=== PATIENT | female | born 1950 | race Caucasian/White ===

== ENCOUNTER 2017-07-06 12:13 | Emergency (ER) | payer MEDICARE, OTHER ==
[2017-07-06] MEDS ORDERED: IBUPROFEN 200 MG TAB PO ONE (12:53)
--- NOTE | 2017-07-06 14:49 | RAD REPORT ---
EXAM DESCRIPTION: RAD - Foot Right 3 View - 07/06/2017 1:20 pm CLINICAL HISTORY: Right foot pain status post injury FINDINGS: No fracture or dislocation is seen
--- NOTE | 2017-07-06 14:50 | EDPHYS ---
Physician Documentation [facility] Name: Yoanna Salguero Age: 66 yrs Sex: Female : 1950 Arrival Date: 07/06/2017 Time: 12:19 Bed 17 Private MD: Dena Gonzalez ED Physician Suraj Carreno HPI: 07/06 12:57 This 66 yrs old Female presents to ER via Ambulatory with complaints of Foot kb Pain. 12:57 The patient presents with pain, that is acute, swelling, tenderness. The complaints kb affect the right foot. Context: The problem was sustained at home, the patient can partially bear weight, must have assistance. Onset: The symptoms/episode began/occurred 1 week(s) ago, and became worse 2 day(s) ago. Modifying factors: The symptoms are alleviated by nothing, the symptoms are aggravated by weight bearing, wearing shoes. Associated signs and symptoms: Pertinent positives: swelling, Pertinent negatives: calf tenderness, fever, nausea, numbness, tingling, vomiting, warmth, weakness. Severity of symptoms: At their worst the symptoms were moderate, in the emergency department the symptoms are unchanged. The patient has not experienced similar symptoms in the past. The patient has not recently seen a physician. Pt states she fell 6 weeks ago and injured her right ankle. STates it was very swollen and she figured it was just a bad sprain. States she did not have it evaluated at the time. States the swelling has been getting better, but she started having right foot pain a week ago and it has been getting worse over the last 2 days. . Historical: - Allergies: 12:28 No Known Allergies; la1 - PMHx: 12:28 None; la1 - Immunization history:: Adult Immunizations up to date. - Social history:: Smoking status: Patient/guardian denies using tobacco. ROS: 13:01 Constitutional: Negative for fever, chills, and weight loss, Cardiovascular: Negative kb for chest pain, palpitations, and edema, Respiratory: Negative for shortness of breath, cough, wheezing, and pleuritic chest pain, Abdomen/GI: Negative for abdominal pain, nausea, vomiting, diarrhea, and constipation, Skin: Negative for injury, rash, and discoloration, Neuro: Negative for headache, weakness, numbness, tingling, and seizure. 13:01 MS/extremity: Positive for pain, swelling, tenderness, of the right foot. Exam: 13:01 Constitutional: This is a well developed, well nourished patient who is awake, alert, kb and in no acute distress. Head/Face: Normocephalic, atraumatic. Chest/axilla: Normal chest wall appearance and motion. Nontender with no deformity. No lesions are appreciated. Cardiovascular: Regular rate and rhythm with a normal S1 and S2. No gallops, murmurs, or rubs. Normal PMI, no JVD. No pulse deficits. Respiratory: Lungs have equal breath sounds bilaterally, clear to auscultation and percussion. No rales, rhonchi or wheezes noted. No increased work of breathing, no retractions or nasal flaring. Abdomen/GI: Soft, non-tender, with normal bowel sounds. No distension or tympany. No guarding or rebound. No evidence of tenderness throughout. Skin: Warm, dry with normal turgor. Normal color with no rashes, no lesions, and no evidence of cellulitis. Neuro: Awake and alert, GCS 15, oriented to person, place, time, and situation. Cranial nerves II-XII grossly intact. Motor strength 5/5 in all extremities. Sensory grossly intact. Cerebellar exam normal. Normal gait. 13:01 Musculoskeletal/extremity: Extremities: grossly normal except: noted in the right foot: pain, swelling, tenderness, ROM: intact in all extremities, Circulation is intact in all extremities. Sensation intact. Weight bearing: can bear weight with assistance only. Vital Signs: 12:27 BP 140 / 78; Pulse 87; Resp 19; Temp 98.2; Pulse Ox 100% on R/A; Weight 68.04 kg; la1 Height 5 ft. 5 in. (165.10 cm); 14:38 BP 115 / 78; Pulse 62; Resp 12; Pulse Ox 100% on R/A; Pain 7/10; em1 12:27 Body Mass Index 24.96 (68.04 kg, 165.10 cm) la1 MDM: 12:34 Patient medically screened. kb 13:01 Data reviewed: vital signs, nurses notes. Data interpreted: Pulse oximetry: on room air kb is 100 %. Interpretation: normal. 14:48 Counseling: I had a detailed discussion with the patient and/or guardian regarding: the kb historical points, exam findings, and any diagnostic results supporting the discharge/admit diagnosis, radiology results, the need for outpatient follow up, a orthopedic surgeon, to return to the emergency department if symptoms worsen or persist or if there are any questions or concerns that arise at home. 07/06 12:34 Order name: Foot Right 3 View XRAY; Complete Time: 14:55 kb 07/06 14:48 Order name: Alton Wrap; Complete Time: 15:11 kb 07/06 14:48 Order name: Crutches; Complete Time: 15:11 kb Administered Medications: 12:56 Drug: Ibuprofen 600 mg Route: PO; 15:17 Follow up: Response: No adverse reaction; Marked relief of symptoms Disposition: 07/07 09:17 Co-signature as Attending Physician, Suraj Carreno MD I agree with the assessment and dinesh plan of care. Disposition: 07/06/17 14:49 Discharged to Home. Impression: Pain in right foot. - Condition is Stable. - Discharge Instructions: Foot Sprain. - Prescriptions for Diclofenac Sodium 75 mg Oral Tablet, Delayed Release (E.C.) - take 1 tablet by ORAL route 2 times per day As needed; 30 tablet. - Medication Reconciliation Form, Thank You Letter, Antibiotic Education, Prescription Opioid Use form. - Follow up: Emergency Department; When: As needed; Reason: Worsening of condition. Follow up: Private Physician; When: 2 - 3 days; Reason: Recheck today's complaints, Continuance of care, Re-evaluation by your physician. Signatures: Dispatcher [employer] EDKY Maryse Bardales, BESSY-C MANAGER AGENCY-Rhonda Rider RN Suraj Perez ch, MD MD cha Attema, Lee RN RN la1 Corrections: (The following items were deleted from the chart) 07/06 15:18 14:49 07/06/2017 14:49 Discharged to Home. Impression: Pain in right foot. Condition is ch Stable. Forms are Medication Reconciliation Form, Thank You Letter, Antibiotic Education, Prescription Opioid Use. Follow up: Emergency Department; When: As needed; Reason: Worsening of condition. Follow up: Private Physician; When: 2 - 3 days; Reason: Recheck today's complaints, Continuance of care, Re-evaluation by your physician. kb
--- NOTE | 2017-07-06 14:50 | ER ---
Nurse's Notes [facility] Name: Yoanna Sagluero Age: 66 yrs Sex: Female : 1950 Arrival Date: 07/06/2017 Time: 12:19 Bed 17 Private MD: Dena Gonzalez Diagnosis: Pain in right foot Presentation: 07/06 12:26 Presenting complaint: Patient states: I had an injury to my ankle about 6 weeks ago on la1 the right and now I am having pain in the top and bottom of my right foot. Transition of care: patient was not received from another setting of care. Onset of symptoms was July 06, 2017. Initial Sepsis Screen: Does the patient meet any 2 criteria? No. Patient's initial sepsis screen is negative. Does the patient have a suspected source of infection? No. Patient's initial sepsis screen is negative. Care prior to arrival: None. 12:26 Method Of Arrival: Ambulatory la1 12:26 Acuity: RAE 4 la1 Historical: - Allergies: 12:28 No Known Allergies; la1 - PMHx: 12:28 None; la1 - Immunization history:: Adult Immunizations up to date. - Social history:: Smoking status: Patient/guardian denies using tobacco. Vital Signs: 12:27 BP 140 / 78; Pulse 87; Resp 19; Temp 98.2; Pulse Ox 100% on R/A; Weight 68.04 kg; la1 Height 5 ft. 5 in. (165.10 cm); 14:38 BP 115 / 78; Pulse 62; Resp 12; Pulse Ox 100% on R/A; Pain 7/10; em1 12:27 Body Mass Index 24.96 (68.04 kg, 165.10 cm) la1 ED Course: 12:19 Patient arrived in ED. sb2 12:19 Dena Gonzalez MD is Private Physician. sb2 12:27 Triage completed. la1 12:27 Arm band placed on left wrist. la1 12:33 Maryse Bardales FNP-C is [facility]. kb 12:33 Suraj Carreno MD is Attending Physician. kb 12:54 Rhonda Gottlieb, CORTNEY is Primary Nurse. ch 13:20 Foot Right 3 View XRAY In Process Unspecified. EDMS 15:11 Crutch training done. Alton wrap to right ankle. em1 Administered Medications: 12:56 Drug: Ibuprofen 600 mg Route: PO; 15:17 Follow up: Response: No adverse reaction; Marked relief of symptoms Outcome: 14:49 Discharge ordered by . 15:18 Patient left the ED. Signatures: Dispatcher [employer] EDMaryse Lane, Rhonda Mark RN RN ch Martinez, Eric em1 Nahum Hoff RN RN paRose Moser 2
== END 2017-07-06 15:18 | disposition home or self-care (01) ==
LOC: ER 12:13
DX: M79.671 Pain in right foot (principal)
CPT/HCPCS: 99283

== ENCOUNTER 2018-07-28 17:21 | Emergency (ER) | payer MEDICARE ==
[2018-07-28 17:59] LABS: Urine Blood NEGATIVE (NEG); Urine Glucose NEGATIVE (NEG); Urine Protein NEGATIVE (NEG); Urine Specific Gravity 1.025 (1.005-1.030)
[2018-07-28] MEDS ORDERED: IBUPROFEN 400 MG TAB ONE (18:09)
[2018-07-28] MEDS ORDERED: DEXAMETHASONE 4 MG TAB ONE (18:09)
[2018-07-28] MEDS ORDERED: IBUPROFEN 200 MG TAB PO ONE (18:10)
--- NOTE | 2018-07-28 18:11 | ER ---
Nurse's Notes [facility] Name: Yoanna Salguero Age: 67 yrs Sex: Female : 1950 Arrival Date: 07/28/2018 Time: 17:24 Bed 15 Private MD: Diagnosis: Low back pain Presentation: 07/28 17:24 Presenting complaint: Patient states: i started having this back pain Friday morning, hj it looks like arthritic pain, the pain moves to the groin area; denies N/V; denies fever and chills; denies trauma to the area;. Transition of care: patient was not received from another setting of care. Onset of symptoms was July 28, 2018. Risk Assessment: Do you want to hurt yourself or someone else? Patient reports no desire to harm self or others. Initial Sepsis Screen: Does the patient meet any 2 criteria? No. Patient's initial sepsis screen is negative. Does the patient have a suspected source of infection? No. Patient's initial sepsis screen is negative. Care prior to arrival: None. 17:24 Method Of Arrival: Ambulatory 17:24 Acuity: RAE 3 hj Historical: - Allergies: 17:26 Sulfa (Sulfonamide Antibiotics); hj 17:26 Codeine; hj - PMHx: 17:26 None; hj - PSHx: 17:26 None; hj - Immunization history:: Adult Immunizations up to date. - Family history:: not pertinent. - Ebola Screening: : Patient negative for fever greater than or equal to 101.5 degrees Fahrenheit, and additional compatible Ebola Virus Disease symptoms. - Social history:: Smoking status: Patient/guardian denies using tobacco. Screenin:30 Abuse screen: Denies threats or abuse. Nutritional screening: No deficits noted. rb1 Tuberculosis screening: No symptoms or risk factors identified. Fall Risk None identified. Assessment: 17:30 General: Appears uncomfortable, Behavior is calm, cooperative. Pain: Complains of pain rb1 in low back Pain currently is 10 out of 10 on a pain scale. Pain began 2-3 days ago. Pain: Aggravated by increased activity, repositioning. Neuro: Level of Consciousness is awake, alert, obeys commands, Oriented to person, place, time, situation. Cardiovascular: Capillary refill < 3 seconds is brisk in bilateral fingers. Respiratory: Airway is patent Respiratory effort is even, unlabored, Respiratory pattern is regular, symmetrical. GI: No signs and/or symptoms were reported involving the gastrointestinal system. : No signs and/or symptoms were reported regarding the genitourinary system. Derm: Skin is pink, warm \T\ dry. Musculoskeletal: Range of motion: intact in all extremities. 17:57 Reassessment: pt. went to X-ray. rb1 18:18 Reassessment: discharge pending due to waiting for X-ray results. rb1 18:23 Reassessment: Patient appears in no apparent distress at this time. No changes from rb1 previously documented assessment. Vital Signs: 17:26 BP 155 / 98; Pulse 73; Resp 18; Temp 98.0(O); Pulse Ox 97% on R/A; Weight 72.57 kg; hj Height 5 ft. 4 in. (162.56 cm); Pain 10/10; 17:57 rb1 18:23 BP 124 / 93; Pulse 73; Resp 16; Temp 98.5(O); Pulse Ox 99% on R/A; Pain 10/10; rb1 17:26 Body Mass Index 27.46 (72.57 kg, 162.56 cm) hj 17:57 pt. went to X-ray rb1 ED Course: 17:24 Patient arrived in ED. hj 17:26 Triage completed. hj 17:28 Arm band placed on right wrist. hj 17:30 Suraj Carreno MD is Attending Physician. [facility] 17:30 Patient has correct armband on for positive identification. Bed in low position. Call rb1 light in reach. Side rails up X 1. Pulse ox on. NIBP on. 17:51 Macy Lieca, RN is Primary Nurse. rb1 18:07 Lumbar Spine (3 Views) XRAY In Process Unspecified. EDMS 18:30 No provider procedures requiring assistance completed. Patient did not have IV access rb1 during this emergency room visit. Administered Medications: 17:57 Drug: Motrin 600 mg Route: PO; rb1 18:23 Follow up: Response: No adverse reaction rb1 17:57 Drug: Decadron 4 mg Route: PO; rb1 18:23 Follow up: Response: No adverse reaction rb1 18:14 Drug: Cipro 500 mg Route: PO; rb1 18:30 Follow up: Response: No adverse reaction rb1 Outcome: 18:10 Discharge ordered by . dinesh 18:30 Patient left the ED. rb1 18:30 Discharged to home via wheelchair, with significant other. rb1 18:30 Condition: stable 18:30 Discharge instructions given to patient, Instructed on discharge instructions, follow up and referral plans. medication usage, Demonstrated understanding of instructions, follow-up care, medications, Prescriptions given X 4. Signatures: Dispatcher [employer] EDMS Suraj Carreno MD MD cha Joaquin, Henry, RN RN Macy Townsend RN RN rb1 Corrections: (The following items were deleted from the chart) 17:30 17:26 Pulse 73bpm; Resp 18bpm; Pulse Ox 97% RA; Temp 98.0F Oral; 72.57 kg; Height 5 ft. hj 4 in.; BMI: 27.4; Pain 10/10; hj 17:31 17:26 Pulse 73bpm; Resp 18bpm; Pulse Ox 97% RA; Temp 98.0F Oral; 72.57 kg; Height 5 ft. hj 4 in.; BMI: 27.4; Pain 10/10; hj 18:47 18:44 Patient left the ED. rb1 rb1
--- NOTE | 2018-07-28 18:11 | EDPHYS ---
Physician Documentation [facility] Name: Yoanna Salguero Age: 67 yrs Sex: Female : 1950 Arrival Date: 07/28/2018 Time: 17:24 Bed 15 Private MD: ED Physician Suraj Carreno HPI: 07/28 17:49 This 67 yrs old Female presents to ER via Ambulatory with complaints of Back dinesh Pain. 17:49 The patient presents with pain that is acute. The symptoms are located in the low back. dinesh Onset: The symptoms/episode began/occurred 2 day(s) ago. The pain does not radiate. Associated signs and symptoms: The patient has no apparent associated signs or symptoms. Modifying factors: The patient symptoms are alleviated by remaining still, the patient symptoms are aggravated by any movement. Severity of symptoms: At their worst the symptoms were mild. The patient has not experienced similar symptoms in the past. Historical: - Allergies: 17:26 Sulfa (Sulfonamide Antibiotics); hj 17:26 Codeine; hj - PMHx: 17:26 None; hj - PSHx: 17:26 None; hj - Immunization history:: Adult Immunizations up to date. - Family history:: not pertinent. - Ebola Screening: : Patient negative for fever greater than or equal to 101.5 degrees Fahrenheit, and additional compatible Ebola Virus Disease symptoms. - Social history:: Smoking status: Patient/guardian denies using tobacco. ROS: 17:49 Constitutional: Negative for fever, chills, and weight loss, Eyes: Negative for injury, dinesh pain, redness, and discharge, ENT: Negative for injury, pain, and discharge, Neck: Negative for injury, pain, and swelling, Cardiovascular: Negative for chest pain, palpitations, and edema, Respiratory: Negative for shortness of breath, cough, wheezing, and pleuritic chest pain, Abdomen/GI: Negative for abdominal pain, nausea, vomiting, diarrhea, and constipation, : Negative for injury, bleeding, discharge, and swelling, MS/Extremity: Negative for injury and deformity, Skin: Negative for injury, rash, and discoloration, Neuro: Negative for headache, weakness, numbness, tingling, and seizure, Psych: Negative for depression, anxiety, suicide ideation, homicidal ideation, and hallucinations, Allergy/Immunology: Negative for hives, rash, and allergies, Endocrine: Negative for neck swelling, polydipsia, polyuria, polyphagia, and marked weight changes, Hematologic/Lymphatic: Negative for swollen nodes, abnormal bleeding, and unusual bruising. 17:49 Back: Positive for pain with movement. Exam: 17:49 Constitutional: This is a well developed, well nourished patient who is awake, alert, dinesh and in no acute distress. Head/Face: Normocephalic, atraumatic. Eyes: Pupils equal round and reactive to light, extra-ocular motions intact. Lids and lashes normal. Conjunctiva and sclera are non-icteric and not injected. Cornea within normal limits. Periorbital areas with no swelling, redness, or edema. ENT: Nares patent. No nasal discharge, no septal abnormalities noted. Tympanic membranes are normal and external auditory canals are clear. Oropharynx with no redness, swelling, or masses, exudates, or evidence of obstruction, uvula midline. Mucous membranes moist. Neck: Trachea midline, no thyromegaly or masses palpated, and no cervical lymphadenopathy. Supple, full range of motion without nuchal rigidity, or vertebral point tenderness. No Meningismus. Chest/axilla: Normal chest wall appearance and motion. Nontender with no deformity. No lesions are appreciated. Cardiovascular: Regular rate and rhythm with a normal S1 and S2. No gallops, murmurs, or rubs. Normal PMI, no JVD. No pulse deficits. Respiratory: Lungs have equal breath sounds bilaterally, clear to auscultation and percussion. No rales, rhonchi or wheezes noted. No increased work of breathing, no retractions or nasal flaring. Abdomen/GI: Soft, non-tender, with normal bowel sounds. No distension or tympany. No guarding or rebound. No evidence of tenderness throughout. Female : Normal external genitalia. Skin: Warm, dry with normal turgor. Normal color with no rashes, no lesions, and no evidence of cellulitis. 17:49 Back: pain, that is mild, ROM is painful, normal spinal alignment noted, CVA tenderness, is absent. Vital Signs: 17:26 BP 155 / 98; Pulse 73; Resp 18; Temp 98.0(O); Pulse Ox 97% on R/A; Weight 72.57 kg; hj Height 5 ft. 4 in. (162.56 cm); Pain 10/10; 17:57 rb1 18:23 BP 124 / 93; Pulse 73; Resp 16; Temp 98.5(O); Pulse Ox 99% on R/A; Pain 10/10; rb1 17:26 Body Mass Index 27.46 (72.57 kg, 162.56 cm) hj 17:57 pt. went to X-ray [facility] MDM: 17:30 Patient medically screened. [facility] 17:52 Data reviewed: vital signs, nurses notes, radiologic studies. [facility] 07/28 17:49 Order name: Urine Culture [facility] 07/28 17:53 Order name: Urine Dipstick--Ancillary (enter results); Complete Time: 18:04 07/28 17:49 Order name: Lumbar Spine (3 Views) XRAY; Complete Time: 18:32 [facility] 07/28 17:49 Order name: Urine Dipstick-Ancillary (obtain specimen); Complete Time: 17:53 [facility] Administered Medications: 17:57 Drug: Motrin 600 mg Route: PO; rb1 18:23 Follow up: Response: No adverse reaction rb1 17:57 Drug: Decadron 4 mg Route: PO; rb1 18:23 Follow up: Response: No adverse reaction rb1 18:14 Drug: Cipro 500 mg Route: PO; rb1 18:30 Follow up: Response: No adverse reaction rb1 Disposition: 07/28/18 18:10 Discharged to Home. Impression: Low back pain. - Condition is Stable. - Discharge Instructions: Back Pain, Adult, Chronic Back Pain, Musculoskeletal Pain, Back Injury Prevention, [id number], Back Pain, Adult, [id number]. - Prescriptions for Cipro 250 mg Oral Tablet - take 1 tablet by ORAL route every 12 hours; 14 tablet. Tramadol 50 mg Oral Tablet - take 1 tablet by ORAL route every 8 hours as needed; 20 tablet. Medrol (James) 4 mg Oral Tablets, Dose Pack - take 1 tablet by ORAL route as directed - follow package instructions; 1 packet. Motrin IB 200 mg Oral Tablet - take 2 tablet by ORAL route every 6 hours As needed as needed with food; 30 tablet. - Medication Reconciliation Form, Thank You Letter, Antibiotic Education, Prescription Opioid Use form. - Follow up: Private Physician; When: 2 - 3 days; Reason: Recheck today's complaints, Continuance of care, Re-evaluation by your physician. - Problem is new. - Symptoms have improved. Signatures: Dispatcher [employer] EDSuraj Burk MD MD cha Joaquin, Henry RN RN Macy Townsend, RN RN rb1 Corrections: (The following items were deleted from the chart) 18:44 18:10 07/28/2018 18:10 Discharged to Home. Impression: Low back pain. Condition is rb1 Stable. Discharge Instructions: Back Pain, Adult, Chronic Back Pain, Musculoskeletal Pain, Back Injury Prevention, [id number], Back Pain, Adult, [id number]. Prescriptions for Cipro 250 mg Oral Tablet - take 1 tablet by ORAL route every 12 hours; 14 tablet, Tramadol 50 mg Oral Tablet - take 1 tablet by ORAL route every 8 hours as needed; 20 tablet, Medrol (James) 4 mg Oral Tablets, Dose Pack - take 1 tablet by ORAL route as directed - follow package instructions; 1 packet, Motrin IB 200 mg Oral Tablet - take 2 tablet by ORAL route every 6 hours As needed as needed with food; 30 tablet. and Forms are Medication Reconciliation Form, Thank You Letter, Antibiotic Education, Prescription Opioid Use. Follow up: Private Physician; When: 2 - 3 days; Reason: Recheck today's complaints, Continuance of care, Re-evaluation by your physician. Problem is new. Symptoms have improved. dinesh
[2018-07-28] MEDS ORDERED: CIPROFLOXACIN HCL 500 MG TAB ONE (18:28)
--- NOTE | 2018-07-28 18:28 | RAD REPORT ---
EXAM DESCRIPTION: RAD - Lumbar Spine 3 Views - 07/28/2018 6:08 pm CLINICAL HISTORY: Back pain, radiculopathy COMPARISON: None. FINDINGS: A three-view lumbar spine examination was performed. Lumbar bodies are normal in height an d normal in AP alignment. There is a mild right convex curvature of the upper lumbar spine and minima l right lateral subluxation of L3 and L4. No fracture or acute bony process seen. Disc space narrowin g is present L3-4, L4-5 and L5-S1. Endplate spurring changes are present in the mid and lower lumbar spine along with moderate facet degenerative change. No pars defects identified. IMPRESSION: Moderate severity mid and lower lumbar degenerative change as detailed. No fracture or acute finding. Concerns for disc herniation, central canal abnormality or occult bone process can be addressed with MR imaging.
== END 2018-07-28 18:44 | disposition home or self-care (01) ==
LOC: ER 17:21
DX: M54.5 Low back pain (principal); Z88.2 Allergy status to sulfonamides; Z88.5 Allergy status to narcotic agent
CPT/HCPCS: 72100; 81003; 87086; 87088; 99284

== ENCOUNTER 2020-10-25 21:07 | Emergency (ER) | payer MEDICARE ==
--- OUTSIDE RECORDS SUMMARY | 2020-10-25 21:10 | XMS REPORT | Continuity of Care Document ---
:1950 Author Organization [facility] t Address [address] [place] [address] Dr. Montero. 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 00:00: [place] vaginitis vaginitis 00 [facility] 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 and 122 it y of urge urge 00:00: [place] urinary urinary 00 Medical incontinen incontinen Br anch ce ce Allergies, Adverse Reactions, Alerts Allergy Allergy Status Severity Reaction(s) Onset Inactive Treating Comm ents Source Name Type Date Date Clinician Codeine Propensi Active Nausea 2019-02 Univers ty to and/or 2-09 ity of adverse Vomiting 00:00: [place] reaction 00 Medical s to Branch drug Sulfa Adverse Active nausea/vomit [facility] codeine Adverse Active Nausea [facility] Social History Social Habit Start Date Stop Date Quantity Comments Source Exposure to Not sure [facility] SARS-CoV-2 [facility] (event) [place] Tobacco use and 2020-09-28 2020-09-28 Never used Universit y of exposure 00:00:00 00:00:00 [facility] [place] Alcohol intake 2020-09-28 2020-09-28 Current drinker Unive rsity of 00:00:00 00:00:00 of alcohol [facility] (finding) [place] Alcohol Comment 2020-01-26 2020-01-26 Socially Universit y of 00:00:00 00:00:00 [facility] [place] Sex Assigned At [birth year] Universit y of 00:00:00 00:00:00 [facility] [place] Smoking Status Start Date Stop Date Source Never smoker [facility] Medications Ordered Filled Start Stop Current Ordering Indication Dosage Frequency Signature Comments Components Source Medication Medication Date Date Medication? Clinician (SIG) Name Name mirabegron Yes [id number] 25mg Take 1 Univers (MYRBETRIQ) 9-01 tablet by ity of 25 mg 00:00: mouth [place] tablet 00 daily. Medical Branch mirabegron Yes [id number] 25mg Take 1 Univers (MYRBETRIQ) 6-07 tablet by ity of 25 mg 00:00: mouth [place] tablet 00 daily. [facility] mirabegron 2020- No [id number] 25mg Take 1 Univers (MYRBETRIQ) 6-07 09-01 tablet by it y of 25 mg 00:00: 00:00 mouth [place] tablet 00 :00 daily. Medical Branch estradioL 2019-02 Yes [id number] .5g Insert 0.5 Univers (ESTRACE) 2-09 g into ity of 0.01 % (0.1 00:00: [place] mg/gram[place] 00 daily. Medical vaginal Insert Branch cream 0.5mg daily at night for 2 weeks and then twice a week estradioL 2019-02 Yes [id number] .5g Insert 0.5 Univers (ESTRACE) 2-09 g into ity of 0.01 % (0.1 00:00: [place] mg/gram) 00 daily. Medical vaginal Insert Branch cream 0.5mg daily at night for 2 weeks and then twice a week rosuvastati 2019-02- No TAKE 1 Uni vers n 20 mg 03-04 TABLET BY ity of tablet 00:00: 00:00 MOUTH [place]CE [place] 00 :00 DAILY IN Medical THE Branch EVENING FOR HIGH CHOLESTERO L FOR 30 DAYS valACYclovi 2019-02 Yes TAKE 1 Univ ers r 500 mg 0-22 TABLET BY ity of tablet 00:00: MOUTH [place] 00 TWICE Medical DAILY FOR Branch 5 DAYS valACYclovi 2019-02 Yes TAKE 1 Univ ers r 500 mg 0-22 TABLET BY ity of tablet 00:00: MOUTH [place] 00 TWICE Medical DAILY FOR Branch 5 DAYS fluocinonid 2019-02 Yes APPLY TO Un peter e 0.05 % 0-10 AFFECTED ity of solution 00:00: AREA ON 00 SCALP ONE Medical TO TWO Branch TIMES DAILY EVERY OTHER WEEK NEEDED fluocinonid 2019-02 Yes APPLY TO Un peter e 0.05 % 0-10 AFFECTED ity of solution 00:00: AREA ON 00 SCALP ONE Medical TO TWO Branch TIMES DAILY EVERY OTHER WEEK NEEDED Ciprofloxac Ciprofloxac 2019- No Dena [address] [facility] in HCl in HCl 09-25 [facility] Vital Signs Vital Name Observation Time Observation Value Comments Source Systolic blood 2020-09-28 20:36:00 136 mm[Hg] Univer sity of pressure [facility] [place] Diastolic blood 2020-09-28 20:36:00 86 mm[facility]Hg[facility] 2020-09-28 20:36:00 83 /min [facility] Body temperature 2020-09-28 20:36:00 36.72 Florina [facility] Respiratory rate 2020-09-28 20:36:00 18 /min [facility] Body height 2020-09-28 20:36:00 162.6 cm [facility] Body weight 2020-09-28 20:36:00 71.396 kg [facility] BMI 2020-09-28 20:36:00 27.02 kg/m2 [facility] Procedures Procedure Date / Time Performed Performing Clinician Sour e LAB ONLY PAP 2020-09-28 21:16:00 Adum, Vikki Ga [facility] SMEAR-LIQUID [facility] h HIGH RISK HPV-THIN 2020-09-28 21:16:00 AdumVikki [facility] PAP SMEAR-LIQUID 2020-09-28 21:16:00 Adum, Vikki Ga [facility] Medical Branch POCT URINALYSIS W/O 2020-09-28 00:00:00 Adum, Vikki Ga [facility] SPECIFIC GRAVITY [facility] Encounters Start End Encounter Admission Attending Care Care Encounter Source Date/Time Date/Time Type Type Clinicians Facility Department ID 2020-10-18 2020-10-18 Telephone Ad, [facility] [id number] Univers 00:00:00 00:00:00 Vikki Ga An [id number] [place] [id number] [place] [id number] [address] 2020-09-28 2020-09-28 Office Ad, [facility] [id number] Univers 15:10:07 16:20:54 Visit Vikki Ga An [id number] [facility] [id number] [id number] [address] 2020-08-15 2020-08-15 [facility] [id number] 2020-05-17 2020-05-17 [facility] [id number] 2020-05-10 2020-05-10 [facility] [id number] 2020-03-13 2020-03-13 [facility] [id number] [facility] 2019-12-20 2019-12-20 [facility] [id number] [facility] 2019-12-09 2019-12-09 [facility] [id number] [facility] 2019-12-09 2019-12-09 [facility] [id number] [facility] 2019-12-01 2019-12-01 [facility] [id number] [facility] 2019-09-26 2019-09-26 [facility] [id number] 14:32:00 14:32:00 [facility] Medicine Outpati ent Clinics 2019-09-22 2019-09-22 [facility] [id number] 17:20:00 17:20:00 [facility] Medicine l Medicine Outpati ent Clinics 2019-08-18 2019-08-18 [facility] [id number] 13[facility]00:00 13:00:00 [facility] Medicine l Medicine Outpati ent Clinics 2019-03-22 2019-03-22 [facility] [id number] 22:03:00 22:03:00 [facility] Medicine l Medicine Outpati ent Clinics 2019-03-18 2019-03-18 [facility] [id number] 15:00:00 15:00:00 [facility] Medicine l Medicine Outpati ent Clinics 2018-07-29 2018-07-29 [facility] [id number] 11:30:00 11:30:00 [facility] Medicine l Medicine Outpati ent Clinics 2018-03-26 2018-03-26 [facility] [id number] 14:00:00 14:00:00 t Urgent Urgent Care L [facility] ent [facility] 2017-07-09 2017-07-09 [facility] [id number] 19:22:00 19:22:00 t [facility] 2017-07-09 2017-07-09 Outpatient Jonnyvijaya [facility] [id number] 11:30:00 11:30:00 t [facility] Results Test Description Test Time Test Comments Results Result Comments Source LAB ONLY PAP SMEAR-LIQUID BASED 2020-10-17 20:18:28 Test Item Value Reference Range Interpretation Comme nts Case Report (test code = 2252335078) Clinical Information (test code = no abnormal history [id number]) Specimen Adequacy (test code = [place] [address]-5) Evaluation(Endocervical/Transformation Zone Component Absent) Interpretation (test code = 73262-9) Negative for intraepithelial l esion or malignancy LMP (test code = 6990827894) Post Menopausal (specify years in Comments) Educational Note (test code = [id number] [facility] [id number]) [file] [id number]= Embedded Images (test code = 0451381640) [facility] [id number] 01:28:26 Test Item Value Reference Range Interpretation Comments High Risk HPV (test code = Negative Negative [id number]) QUE (test code = QUE) Lab Interpretation (test code = Normal 79486-6) [facility] SPECIFIC [id number] 20:40:00 Test Item Value Reference Range Interpretation Comments POCT PH U (test code = 3254) 5 mg/dl 5-8 POCT U LEUK EST (test code = neg Negative - Negative 3263) POCT U NIT (test code = 3262) neg Negative - Negative POCT U PROT (test code = 3259) neg Negative - Negative POCT U GLU (test code = 3256) neg Negative - Negative POCT U KETONE (test code = 3258) neg Negative - Negative POCT U BLD (test code = 3257) neg Negative - Negative [facility]
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
== END 2020-10-25 23:49 | disposition home or self-care (01) ==
LOC: ER 21:07
PROC: 0JQ00ZZ Repair Scalp Subcutaneous Tissue and Fascia, Open Approach (ICD-10-PCS; principal; 2020-10-25)
DX: S01.81XA Laceration without foreign body of other part of head, initial encounter (principal); S06.0X1A Concussion with loss of consciousness of 30 minutes or less, initial encounter; V94.0XXA Hitting object or bottom of body of water due to fall from watercraft, initial encounter; Y93.89 Activity, other specified; Y92.89 Other specified places as the place of occurrence of the external cause; Y99.8 Other external cause status; Z88.6 Allergy status to analgesic agent; Z88.2 Allergy status to sulfonamides
CPT/HCPCS: 70450; 72125; 99283

== ENCOUNTER 2020-11-09 16:35 | Emergency (ER) | payer MEDICARE ==
--- NOTE | 2020-11-09 16:47 | EDPHYS ---
Physician Documentation [facility] Name: Yoanna Salguero Age: 69 yrs Sex: Female : 1950 Arrival Date: 11/09/2020 Time: 16:39 Bed Waiting Private MD: Yumiko Head ED Physician Shaan Delgado HPI: 11/09 16:45 This 69 yrs old Female presents to ER via Ambulatory with complaints of kb Staple Removal. 16:45 The patient has kevin on the scalp. Previous treatment: The patient was initially kb treated 14 day(s) ago, the care was rendered at [facility]. Sutures/kevin progress: The patient has no c/o's. The wound is well-healing with no redness, swelling, discharge, or dehiscence reported. The patient has not experienced similar symptoms in the past. The patient has not recently seen a physician. Historical: - Allergies: 16:43 Codeine; jd3 16:43 Sulfa (Sulfonamide Antibiotics); jd3 - PMHx: 16:43 urinary problems; jd3 - Immunization history:: Adult Immunizations unknown. - Social history:: Smoking status: unknown. ROS: 16:45 Constitutional: Negative for fever, chills, and weight loss. kb 16:45 Skin: Positive for kevin in place. 16:45 All other systems are negative. Exam: 16:45 Constitutional: This is a well developed, well nourished patient who is awake, alert, kb and in no acute distress. Head/Face: Normocephalic, atraumatic. ENT: Moist Mucous membranes Respiratory: Respirations even and unlabored. No increased work of breathing, no retractions or nasal flaring. MS/ Extremity: Pulses equal, no cyanosis. Neurovascular intact. Full, normal range of motion. Neuro: Awake and alert, GCS 15, oriented to person, place, time, and situation. Moves all extremities. Normal gait. Psych: Awake, alert, with orientation to person, place and time. Behavior, mood, and affect are within normal limits. 16:45 Skin: Wound recheck: Staple laceration closure: the wound is healing well, the edges are well approximated, no evidence of dehiscence, no drainage, no erythema, no swelling. Vital Signs: 16:43 Pulse 70; Resp 16 S; Temp 98.0(TE); Pulse Ox 100% on R/A; Weight 72.57 kg (R); Height 5 jd3 ft. 4 in. (162.56 cm) (R); Pain 0/10; 16:43 Body Mass Index 27.46 (72.57 kg, 162.56 cm) jd3 Procedures: 16:45 Suture/Staple removal: Removed 5 kevin, from scalp, site appears well healed, Patient kb tolerated well. MDM: 16:44 Data reviewed: vital signs, nurses notes. Data interpreted: Pulse oximetry: on room air kb is 100 %. Interpretation: normal. Counseling: I had a detailed discussion with the patient and/or guardian regarding: the historical points, exam findings, and any diagnostic results supporting the discharge/admit diagnosis, the need for outpatient follow up, a family practitioner, to return to the emergency department if symptoms worsen or persist or if there are any questions or concerns that arise at home. 16:46 Patient medically screened. kb Administered Medications: No medications were administered Disposition: 17:08 Co-signature as Attending Physician, Shaan Delgado MD I agree with the assessment and kdr plan of care. Disposition Summary: 11/09/20 16:46 Discharge Ordered Location: Home kb Condition: Stable kb Diagnosis - Encounter for removal of sutures - kevin kb Followup: kb - With: Emergency Department - When: As needed - Reason: Worsening of condition Followup: kb - With: Private Physician - When: 2 - 3 days - Reason: Recheck today's complaints, Continuance of care, Re-evaluation by your physician Discharge Instructions: - Discharge Summary Sheet kb - Suture Removal, Care After kb Forms: - Medication Reconciliation Form kb - Thank You Letter kb - Antibiotic Education kb - Prescription Opioid Use kb Signatures: Maryse Bardales, CLAY ARTIST-C CLAY ARTIST-Ckb Shaan Delgado MD MD kdr Davies, Jonathon RN RN jd3
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
[2020-11-09 17:18] VITALS: TEMP 98; O2SAT 100
== END 2020-11-09 16:47 | disposition home or self-care (01) ==
LOC: ER 16:35
DX: Z48.02 Encounter for removal of sutures (principal)
CPT/HCPCS: 99282

== ENCOUNTER 2020-12-03 12:42 | Emergency (ER) | payer MEDICARE, OTHER ==
[2020-12-03 14:08] LABS: Basophils % 0.1 % (0-1.3); Hematocrit 42.6 % (36.0-45.0); Lymphocytes % 16.1 % (15.3-44.8); MPV 8.4 fL (7.6-11.3); RBC Red Blood Cell Count 4.51 M/uL (3.86-4.86)
[2020-12-03] MEDS ORDERED: dexAMETHasone 10 MG/ML VIAL ONE (14:12)
[2020-12-03] MEDS ORDERED: ONDANSETRON 4 MG/2 ML VIAL ONE (14:12)
[2020-12-03] MEDS ORDERED: MAGNES/ALUMIN/SIMET 30ML UCUP ONE (14:25)
[2020-12-03] MEDS ORDERED: DIPHENHYDRAMINE 12.5MG/5ML LIQ ONE (14:25)
[2020-12-03] MEDS ORDERED: LIDOCAINE VISCOUS 2% SOLN 15 ML UDC ONE (14:25)
[2020-12-03] MEDS ORDERED: NA CHLORIDE 0.9% 1,000 ML ONE (14:25)
--- NOTE | 2020-12-03 16:57 | EDPHYS ---
Physician Documentation [facility] Name: Yoanna Salguero Age: 69 yrs Sex: Female : 1950 Arrival Date: 12/03/2020 Time: 12:44 Bed 15 Private MD: Yumiko Head ED Physician Shaan Delgado HPI: 12/03 16:55 This 69 yrs old Female presents to ER via Wheelchair with complaints of Sore jmm Throat, Decreased Appetite, Difficulty Swallowing. 16:55 The patient presents with sore throat. Onset: The symptoms/episode began/occurred jmm gradually. Modifying factors: The symptoms are alleviated by nothing, the symptoms are aggravated by nothing. Associated signs and symptoms: Pertinent positives: fever. The patient has not experienced similar symptoms in the past. Historical: - Allergies: 12:53 Codeine; jl7 12:53 Sulfa (Sulfonamide Antibiotics); jl7 - Home Meds: 12:53 Myrbetriq Oral [Active]; jl7 - PMHx: 12:53 urinary problems; jl7 - PSHx: 12:53 None; jl7 - Immunization history:: Client reports having NOT received the Covid vaccine. - Social history:: Smoking status: Patient denies any tobacco usage or history of. ROS: 16:55 Cardiovascular: Negative for chest pain, palpitations, and edema, Respiratory: Negative jmm for shortness of breath, cough, wheezing, and pleuritic chest pain. 16:55 ENT: Positive for sore throat. 16:55 All other systems are negative. Exam: 16:55 Constitutional: This is a well developed, well nourished patient who is awake, alert, jmm and in no acute distress. Head/Face: atraumatic. Eyes: EOMI, no conjunctival erythema appreciated ENT: Moist Mucus Membranes Neck: Trachea midline, Supple Chest/axilla: Normal chest wall appearance and motion. Cardiovascular: Regular rate and rhythm. No edema appreciated Respiratory: Normal respirations, no respiratory distress appreciated Abdomen/GI: Non distended, soft Back: Normal ROM Skin: General appearance color normal 16:55 ENT: Posterior pharynx: Uvula: midline, erythema, that is moderate. 16:55 Musculoskeletal/extremity: ROM: intact in all extremities. 16:55 Skin: Appearance: Color: normal in color. 16:55 Neuro: Orientation: is normal, Mentation: is normal, Memory: is normal. Vital Signs: 12:50 BP 90 / 61; Pulse 73; Resp 19; Temp 98.2; Pulse Ox 97% ; Weight 70.31 kg; Height 5 ft. jl7 4 in. (162.56 cm); Pain 10/10; 13:17 BP 101 / 69; Pulse 68; Resp 16; Temp 96; Pain 9/10; tc5 14:18 BP 121 / 63; Pulse 66; Resp 16; Pulse Ox 99% ; Pain 10/10; tc5 15:15 BP 111 / 53; Pulse 70; Resp 16; Pulse Ox 92% ; tc5 16:09 BP 120 / 70; Pulse 70; Resp 15; Pulse Ox 91% ; tc5 17:30 BP 126 / 74; Pulse 71; Resp 18; Pulse Ox 94% ; Pain 4/10; tc5 12:50 Body Mass Index 26.61 (70.31 kg, 162.56 cm) 7 MDM: 13:09 Patient medically screened. [facility] 16:51 Data reviewed: vital signs, nurses notes. Counseling: I had a detailed discussion with sterling the patient and/or guardian regarding: the historical points, exam findings, and any diagnostic results supporting the discharge/admit diagnosis, the need for outpatient follow up, to return to the emergency department if symptoms worsen or persist or if there are any questions or concerns that arise at home. 12/03 12:59 Order name: Strep; Complete Time: 13:55 [facility] 12/03 13:10 Order name: CBC with Diff; Complete Time: 14:17 [facility] 12/03 13:10 Order name: BMP; Complete Time: 14:50 [facility] 12/03 13:31 Order name: Throat Culture [facility] 12/03 13:09 Order name: Saline Lock; Complete Time: 14:12 [facility] Administered Medications: 14:11 Drug: Zofran (Ondansetron) 4 mg Route: IVP; Site: right antecubital; tc5 16:44 Follow up: Response: No adverse reaction tc5 14:11 Drug: Decadron - Dexamethasone 10 mg Route: IVP; Site: right antecubital; tc5 16:44 Follow up: Response: No adverse reaction tc5 14:12 Drug: NS 0.9% 1000 ml Route: IV; Rate: 1 bolus; Site: right antecubital; tc5 17:31 Follow up: IV Status: Completed infusion; IV Intake: 1000ml tc5 14:13 Drug: Lidocaine Gel 2 % 1 application Route: Mucous Membrane; tc5 16:43 Follow up: Response: No adverse reaction tc5 14:13 Drug: diphenhydrAMINE 12.5 mg Route: PO; tc5 16:43 Follow up: Response: No adverse reaction tc5 14:13 Drug: Maalox (aluminum hydroxide, magnesium hydroxide, simethicone) Suspension (200 tc5 mg-200 mg-20 mg/5 mL) 30 ml Route: PO; 16:43 Follow up: Response: No adverse reaction tc5 Disposition: 12/04 05:38 Co-signature as Attending Physician, Shaan Delgado MD I agree with the assessment and kdr plan of care. Disposition Summary: 12/03/20 16:57 Discharge Ordered Location: Home jm Condition: Stable jm Diagnosis - Acute pharyngitis, unspecified jm Followup: jm - With: Private Physician - When: 2 - 3 days - Reason: Recheck today's complaints, Continuance of care, Re-evaluation by your physician Discharge Instructions: - Discharge Summary Sheet [facility] - Pharyngitis [facility] Forms: - Medication Reconciliation Form [facility] - Thank You Letter [facility] - Antibiotic Education [facility] - Prescription Opioid Use [facility] Prescriptions: - MAGIC MOUTHWASH - take 10 milliliter by ORAL route 4 times per day Please swish, gargle, and spit jmm as needed for throat discomfort.; 200 milliliter; Refills: 0, Product Selection Permitted Signatures: Dispatcher [employer] EDShaan Gutierrez MD MD kdr Mickail, Joel, PA PA jmm Leal, Jahala RN RN jl7 Lauren Johnson RN RN tc5
--- NOTE | 2020-12-03 16:57 | ER ---
Nurse's Notes [facility] Name: Yoanna Salguero Age: 69 yrs Sex: Female : 1950 Arrival Date: 12/03/2020 Time: 12:44 Bed 15 Private MD: Yumiko Heda Diagnosis: Acute pharyngitis, unspecified Presentation: 12/03 12:50 Chief complaint: Patient states: Covid + since Friday, sore throat hurts so much I jl7 can't drink or eat anything. Denies shortness of breath, denies cough and fever. Coronavirus screen: sore throat, Client reports previous positive COVID test result. Ebola Screen: No symptoms or risks identified at this time. Initial Sepsis Screen: Does the patient meet any 2 criteria? No. Patient's initial sepsis screen is negative. Does the patient have a suspected source of infection? No. Patient's initial sepsis screen is negative. Risk Assessment: Do you want to hurt yourself or someone else? Patient reports no desire to harm self or others. Onset of symptoms was November 30, 2020. Care prior to arrival: None. 12:50 Method Of Arrival: Wheelchair jl7 12:50 Acuity: RAE 3 jl7 Triage Assessment: 12:53 General: Appears in no apparent distress. uncomfortable, Behavior is calm, cooperative, jl7 appropriate for age. Pain: Complains of pain in sore throat Pain currently is 10 out of 10 on a pain scale. EENT: Throat is reddened has enlarged tonsils bilaterally with gag reflex present. Historical: - Allergies: 12:53 Codeine; jl7 12:53 Sulfa (Sulfonamide Antibiotics); jl7 - Home Meds: 12:53 Myrbetriq Oral [Active]; jl7 - PMHx: 12:53 urinary problems; jl7 - PSHx: 12:53 None; jl7 - Immunization history:: Client reports having NOT received the Covid vaccine. - Social history:: Smoking status: Patient denies any tobacco usage or history of. Screenin:17 Abuse screen: Denies threats or abuse. Denies injuries from another. Nutritional tc5 screening: No deficits noted. Tuberculosis screening: No symptoms or risk factors identified. Fall Risk None identified. Assessment: 13:06 General: Appears uncomfortable, Behavior is calm, cooperative, appropriate for age. tc5 General: Appears uncomfortable, Behavior is calm, cooperative, appropriate for age, general body aches, rates pain 9/10 took 2 reg strength asa because the tylenol did not work, states the asa didn't help the pain either.. 16:09 General: pt sleeping quietly, at bedside, no needs. will cont to monitor.. tc5 Vital Signs: 12:50 BP 90 / 61; Pulse 73; Resp 19; Temp 98.2; Pulse Ox 97% ; Weight 70.31 kg; Height 5 ft. jl7 4 in. (162.56 cm); Pain 10/10; 13:17 BP 101 / 69; Pulse 68; Resp 16; Temp 96; Pain 9/10; tc5 14:18 BP 121 / 63; Pulse 66; Resp 16; Pulse Ox 99% ; Pain 10/10; tc5 15:15 BP 111 / 53; Pulse 70; Resp 16; Pulse Ox 92% ; tc5 16:09 BP 120 / 70; Pulse 70; Resp 15; Pulse Ox 91% ; tc5 17:30 BP 126 / 74; Pulse 71; Resp 18; Pulse Ox 94% ; Pain 4/10; tc5 12:50 Body Mass Index 26.61 (70.31 kg, 162.56 cm) jl7 ED Course: 12:44 Patient arrived in ED. am2 12:44 Yumiko Head FNP-C is Private Physician. am2 12:53 Triage completed. jl7 12:53 Arm band placed on right wrist. 7 13:01 Lauren Johnson, RN is Primary Nurse. tc5 13:03 Bala Lu PA is PHCP. [facility] 13:03 Shaan Delgado MD is Attending Physician. [facility] 14:12 Inserted saline lock: 20 gauge in right antecubital area, using aseptic technique. tc5 Blood collected. 17:30 IV discontinued, intact, bleeding controlled, No redness/swelling at site. Pressure tc5 dressing applied. Administered Medications: 14:11 Drug: Zofran (Ondansetron) 4 mg Route: IVP; Site: right antecubital; tc5 16:44 Follow up: Response: No adverse reaction tc5 14:11 Drug: Decadron - Dexamethasone 10 mg Route: IVP; Site: right antecubital; tc5 16:44 Follow up: Response: No adverse reaction tc5 14:12 Drug: NS 0.9% 1000 ml Route: IV; Rate: 1 bolus; Site: right antecubital; tc5 17:31 Follow up: IV Status: Completed infusion; IV Intake: 1000ml tc5 14:13 Drug: Lidocaine Gel 2 % 1 application Route: Mucous Membrane; tc5 16:43 Follow up: Response: No adverse reaction tc5 14:13 Drug: diphenhydrAMINE 12.5 mg Route: PO; tc5 16:43 Follow up: Response: No adverse reaction tc5 14:13 Drug: Maalox (aluminum hydroxide, magnesium hydroxide, simethicone) Suspension (200 tc5 mg-200 mg-20 mg/5 mL) 30 ml Route: PO; 16:43 Follow up: Response: No adverse reaction tc5 Intake: 17:31 IV: 1000ml; Total: 1000ml. tc5 Outcome: 16:57 Discharge ordered by MD. katz 17:31 Patient left the ED. tc5 Signatures: Bala Lu PA PA jmm Leal, Jahala, RN RN jl7 Joanna Hernandez Theresa RN RN tc5
[2020-12-03 17:40] VITALS: TEMP 96
[2020-12-03 17:46] VITALS: BP 126/74; O2SAT 94
== END 2020-12-03 17:31 | disposition home or self-care (01) ==
LOC: ER 12:42
DX: J02.9 Acute pharyngitis, unspecified (principal); Z88.2 Allergy status to sulfonamides; Z88.5 Allergy status to narcotic agent
CPT/HCPCS: 87070; 85025; 80048; 36415; 87081; 96375; 96374; 99284; J1100; J7030; J2405; Q0163

== ENCOUNTER 2022-12-08 16:31 | Emergency (ER) | payer OTHER ==
--- OUTSIDE RECORDS SUMMARY | 2022-12-08 16:38 | XMS REPORT | Continuity of Care Document ---
:1950 Author Organization [facility] t Address [address] [place] [address]. [address] [place] [address] Care Team Providers Name Role Phone Pcp, Patient Does Not Have A Primary Care Physician [id number] Yumiko Head Attending Clinician Unavailable Blade Adames Attending Clinician Unavailable Dena Gonzalez Attending Clinician Unavailable VIKKI GREENE Attending Clinician Unavailable Vikki Greene MD Attending Clinician Doctor Unassigned, [place] Attending Clinician Unavailable Payers Payer Name Policy Type Policy Number Effective Date Expiration Date S brittanierj [facility] [id number] 2019 MEDICARE 00:00:00 ADVANTAGE AAR Medicare C1 [id number] Common Spir it Complete [facility] Problems Condition Condition Condition Status Onset Resolution Last Treating Co mments Source Name Details Category Date Date Treatment Clinician Date 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 00:00: [place] vaginitis vaginitis 00 Medi macrina Branch 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 and 03-10 it y of urge urge 00:00: [place] urinary urinary 00 Medical incontinen incontinen Br anch ce ce [id number] Other Problem Common chronic Spirit pain [facility] [id number] Lumbago Problem Commo n with Spirit sciatica, - [facility] left side [facility] [id number] Lumbago Problem Comm on with Spirit sciatica, - [facility] right side [facility] Seasonal Seasonal Problem Commo n allergy allergies [facility] [id number] History of Problem Co mmon fall [facility] [id number] Elevated Problem Comm on BP without Spirit diagnosis - [facility] Hyperchole Hyperchole Problem C ommon [facility] [id number] Scalp Problem Commo n 00 lesion [facility] [id number] History of Problem Co mmon hypothyroi [facility] dism [facility] [id number] Fever Problem Common blister [facility] [id number] Subcutaneo Problem C ommon [id number] us mass [facility] Allergies, Adverse Reactions, Alerts Allergy Allergy Status Severity Reaction(s) Onset Inactive Treating Comm ents Source Name Type Date Date Clinician CODEINE DRUG Active High N/V 2019-02 Univers INGREDI 2- ity of 00:00: [place] [facility] Codeine Propensi Active Nausea 2019-02 Univers ty to and/or 03-28 ity of adverse Vomiting 00:00: [place] reaction Medical s to Branch drug Codeine Codeine Active Nausea Common [facility] Social History Social Habit Start Date Stop Date Quantity Comments Source History of Tobacco Common Spirit - Use [facility] Sex Assigned At Common Sp kimo - [facility] Sexual orientation [facility] [place] [facility] [place] History SDOH University o f Alcohol Frequency [facility] [place] [facility] edical Branch History SDOH University o f Alcohol Std Drinks [place] [facility] [place] History SDOH University o f Alcohol Binge [place] [facility] History of Social 2020-11-23 2020-11-23 Univers ity of function 00:00:00 00:00:00 [facility] Exposure to 2020-08-28 2020-09-27 Not sure University of SARS-CoV-2 (event) 00:00:00 10:29:00 [facility] Tobacco use and 2020-01-26 2020-01-26 Smokeless Universit y of exposure 00:00:00 00:00:00 tobacco non-user [facility] dical [place] Alcohol intake 2020-01-26 2020-01-26 Current drinker Unive rsity of 00:00:00 00:00:00 of alcohol [place] [facility] (finding) Branch Alcohol Comment 2020-01-26 2020-01-26 Socially Universit y of 00:00:00 00:00:00 [facility] Smoking Status Start Date Stop Date Source Never Smoker Common Spirit - [facility] Medications Ordered Filled Start Stop Current Ordering Indication Dosage Frequency Signature Comments Components Source Medication Medication Date Date Medication? Clinician (SIG) Name Name estradioL Yes [id number] .5g Insert 0.5 Univers (ESTRACE) 2-02 g into ity of 0.01 % (0.1 00:00: vagina [place] mg/gram) 00 daily. Medical vaginal Insert Branch cream 0.5mg daily at night for 2 weeks and then twice a week Etodolac Etodolac 2020-02 202- No 1{capsu TID Etodolac 300 MG 300 MG 0-05 12- le_with 300 MG 00:00: 00:00 _food} 00 :00 Etodolac Etodolac 2020-02- No 1{capsu TID Etodolac 300 MG 300 MG 0-19 10-29 le_with 300 MG 00:00: 00:00 _food} 00 :00 Gabapentin Gabapentin 2020-02 No 1{capsu TID Gabapentin 300 MG 300 MG 0-11 le} 300 MG 00:00: 00 Gabapentin Gabapentin 2020- No 1{capsu TID Gabapentin 300 MG 300 MG 0-11 le} 300 MG 00:00: 00 Gabapentin Gabapentin 2020- No 1{capsu TID Gabapentin 300 MG 300 MG 0-11 le} 300 MG 00:00: 00 Gabapentin Gabapentin 2020- No 1{capsu TID Gabapentin 300 MG 300 MG 0-11 le} 300 MG 00:00: 00 mirabegron Yes [id number] 25mg Take 1 Univers (MYRBETRIQ) 9 tablet by ity of 25 mg 00:00: mouth [place] tablet 00 daily. Medical Branch mirabegron Yes [id number] 25mg Take 1 Univers (MYRBETRIQ) 9 tablet by ity of 25 mg 00:00: mouth [place] tablet 00 daily. Medical Branch mirabegron Yes [id number] 25mg Take 1 Univers (MYRBETRIQ) 10-18 tablet by ity of 25 mg 00:00: mouth [place] tablet 00 daily. Medical Branch valACYclovi valACYclovi 2020- No 1{table QD valACYclov r HCl 1 GM r HCl 1 GM 08-16 07-10 t} ir HCl 1 00:00: 00:00 GM 00 :00 mirabegron 2020- No [id number] 25mg Take 1 Univers (MYRBETRIQ) 07-24 tablet by it y of 25 mg 00:00: 00:00 mouth [place] tablet 00 :00 daily. [facility] Branch mirabegron 2020- No [id number] 25mg Take 1 Univers (MYRBETRIQ) 07-24 tablet by it y of 25 mg 00:00: 00:00 mouth [place] tablet 00 :00 daily. Medical Branch estradioL 2019-02- No [id number] .5g Insert 0.5 Univers (ESTRACE) 03-28- g into ity of 0.01 % (0.1 00:00: 00:00 vagina [place] mg/gram) 00 :00 daily. Medical vaginal Insert Branch cream 0.5mg daily at night for 2 weeks and then twice a week estradioL 2019-02 No [id number] .5g Insert 0.5 Univers (ESTRACE) 03-28- g into ity of 0.01 % (0.1 00:00: 00:00 vagina [place] mg/gram) 00 :00 daily. Medical vaginal Insert Branch cream 0.5mg daily at night for 2 weeks and then twice a week estradioL 2019-02 No [id number] .5g Insert 0.5 Univers (ESTRACE) 03-28- g into ity of 0.01 % (0.1 00:00: 00:00 vagina [place] mg/gram) 00 :00 daily. Medical vaginal Insert Branch cream 0.5mg daily at night for 2 weeks and then twice a week estradioL 2019-02 No [id number] .5g Insert 0.5 Univers (ESTRACE) 03-28- g into ity of 0.01 % (0.1 00:00: 00:00 vagina [place] mg/gram) 00 :00 daily. Medical vaginal Insert Branch cream 0.5mg daily at night for 2 weeks and then twice a week estradioL 2019-02- No [id number] .5g Insert 0.5 Univers (ESTRACE) 03-28 g into ity of 0.01 % (0.1 00:00: 00:00 vagina [place] mg/gram) 00 :00 daily. Medical vaginal Insert Branch cream 0.5mg daily at night for 2 weeks and then twice a week estradioL 2019-02 No [id number] .5g Insert 0.5 Univers (ESTRACE) 03-28 g into ity of 0.01 % (0.1 00:00: 00:00 vagina [place] mg/gram) 00 :00 daily. Medical vaginal Insert Branch cream 0.5mg daily at night for 2 weeks and then twice a week mirabegron 2019-02- No [id number] 25mg Take 1 Univers (MYRBETRIQ) 03-28 tablet by it y of 25 mg 00:00: 00:00 mouth [place] tablet 00 :00 daily. [facility] mirabegron 2019-02 No [id number] 25mg Take 1 Univers (MYRBETRIQ) 03-28 tablet by it y of 25 mg 00:00: 00:00 mouth [place] tablet 00 :00 daily. [facility] rosuvastati 2019-02- No TAKE 1 Uni vers n 20 mg 16 - TABLET BY ity of tablet 00:00: 00:00 M[place]TH ONCE [place] 00 :00 DAILY [place] [facility] EVENING FOR HIGH CHOLESTERO L FOR 30 DAYS rosuvastati 2019-02- No TAKE 1 Uni vers n 20 mg 16 -12 TABLET BY ity of tablet 00:00: 00:00 M[place]TH [place]CE [place] 00 [place] DA[place] [facility] EVENING FOR HIGH CHOLESTERO L FOR 30 DAYS rosuvastati 2019-02- No TAKE 1 Uni vers n 20 mg 16 09-28 TABLET BY ity of tablet 00:00: 00:00 M[place]TH ONCE [place] 00 :[place] DA[place] [facility] EVENING FOR HIGH CHOLESTERO L FOR 30 DAYS rosuvastati 2019-02- No TAKE 1 Uni vers n 20 mg 1-16 08-12 TABLET BY ity of tablet 00:00: 00:00 M[place]TH [place]CE [place] 00 [place] DA[place] IN Medical THE Branch EVENING FOR HIGH CHOLESTERO L FOR 30 DAYS Crestor 20 Crestor 20 2019-02 No Crestor 20 MG MG 0-22 MG 00:00: 00 Crestor 20 Crestor 20 2019-02 No Crestor 20 MG MG 0-22 MG 00:00: 00 Crestor 20 Crestor 20 2019-02 No Crestor 20 MG MG 0-22 MG 00:00: 00 Crestor 20 Crestor 20 2019-02 No Crestor 20 MG MG 0-22 MG 00:00: 00 Crestor 20 Crestor 20 2019-02 No Crestor 20 MG MG 0-22 MG 00:00: 00 Crestor 20 Crestor 20 2019-02 No Crestor 20 MG MG 0-22 MG 00:00: 00 Crestor 20 Crestor 20 2019-02 No Crestor 20 MG MG 0-22 MG 00:00: 00 Crestor 20 Crestor 20 2019-02 No Crestor 20 MG MG 0-22 MG 00:00: 00 Crestor 20 Crestor 20 2019-02 No Crestor 20 MG MG 0-22 MG 00:00: 00 Crestor 20 Crestor 20 2019-02 No Crestor 20 MG MG 0-22 MG 00:00: 00 valACYclovi 2019-02 Yes TAKE 1 Univ ers r 500 mg 0-22 TABLET BY ity of tablet 00:00: MOUTH 00 TWICE Medical DAILY FOR Branch 5 DAYS valACYclovi 2019-02 Yes TAKE 1 Univ ers r 500 mg 0-22 TABLET BY ity of tablet 00:00: MOUTH 00 TWICE Medical DAILY FOR Branch 5 DAYS valACYclovi 2019-02 Yes TAKE 1 Univ ers r 500 mg 0-22 TABLET BY ity of tablet 00:00: MOUTH 00 TWICE Medical DAILY FOR Branch 5 DAYS valACYclovi 2019-02 Yes TAKE 1 Univ ers r 500 mg 0-22 TABLET BY ity of tablet 00:00: MOUTH 00 TWICE Medical DAILY FOR Branch 5 DAYS valACYclovi 2019-02 Yes TAKE 1 Univ ers r 500 mg 0-22 TABLET BY ity of tablet 00:00: MOUTH 00 TWICE Medical DAILY FOR Branch 5 DAYS valACYclovi 2019-02 Yes TAKE 1 Univ ers r 500 mg 0-22 TABLET BY ity of tablet 00:00: MOUTH [place] 00 TWICE Medical DAILY FOR Branch 5 DAYS valACYclovi 2020- Yes TAKE 1 Univ ers r 500 mg 0-22 TABLET BY ity of tablet 00:00: MOUTH 00 TWICE Medical DAILY FOR Branch 5 DAYS fluocinonid 2019- Yes APPLY TO Un peter e 0.05 % 0-10 AFFECTED ity of solution 00:00: AREA ON 00 SCALP ONE Medical TO TWO Branch TIMES DAILY EVERY OTHER WEEK NEEDED fluocinonid 2019- Yes APPLY TO Un peter e 0.05 % 0-10 AFFECTED ity of solution 00:00: AREA ON 00 SCALP ONE Medical TO TWO Branch TIMES DAILY EVERY OTHER WEEK NEEDED fluocinonid 2020- Yes APPLY TO Un peter e 0.05 % 0-10 AFFECTED ity of solution 00:00: AREA ON [place] 00 SCALP ONE Medical TO TWO Branch TIMES DAILY EVERY OTHER WEEK NEEDED fluocinonid 2019- Yes APPLY TO Un peter e 0.05 % 0-10 AFFECTED ity of solution 00:00: AREA ON [place] 00 SCALP ONE Medical TO TWO Branch TIMES DAILY EVERY OTHER WEEK NEEDED fluocinonid 2020- Yes APPLY TO Un peter e 0.05 % 0-10 AFFECTED ity of solution 00:00: AREA ON [place] 00 SCALP ONE Medical TO TWO Branch TIMES DAILY EVERY OTHER WEEK NEEDED fluocinonid 2020- Yes APPLY TO Un peter e 0.05 % 0-10 AFFECTED ity of solution 00:00: AREA ON [place] 00 SCALP ONE Medical TO TWO Branch TIMES DAILY EVERY OTHER WEEK NEEDED fluocinonid 2020- Yes APPLY TO Un peter e 0.05 % 0-10 AFFECTED ity of solution 00:00: AREA ON [place] 00 SCALP ONE Medical TO TWO Branch TIMES DAILY EVERY OTHER WEEK NEEDED Ciprofloxac Ciprofloxac 2020-0 2020- No Dena 1 tablet Common in HCl in HCl 09-25- Millender Spiri t 00:00: 00:00 - [facility]I 00 :00 [facility] Tamiflu 75 Tamiflu 75 2019-0 No 1{capsu BID Tamiflu 75 MG MG 2-07 le} MG 00:00: 00 Tamiflu 75 Tamiflu 75 2019-0 No 1{capsu BID Tamiflu 75 MG MG 2-07 le} MG 00:00: 00 Tamiflu 75 Tamiflu 75 2019-0 No 1{capsu BID Tamiflu 75 MG MG 2-07 le} MG 00:00: 00 Myrbetriq Myrbetriq No 1{table QD Myrbetriq 25 MG 25 MG t} 25 MG Vitamin B Vitamin B No Vitamin B Complex Complex Complex Soma 250 MG Soma 250 MG No 2{table QD Soma 250 ts_as_n MG eeded} Vitamin D Vitamin D No Vitamin D Diclofenac Diclofenac No TID Diclofenac Sodium 50 Sodium 50 Sodium 50 MG MG MG Hair Skin Hair Skin No Hair Skin and Nails and Nails and Nails Formula Formula Formula Valtrex 1 Valtrex 1 No QD Valtrex 1 GM GM GM Myrbetriq Myrbetriq No 1{table QD Myrbetriq 25 MG 25 MG t} 25 MG Diclofenac Diclofenac No TID Diclofenac Sodium 50 Sodium 50 Sodium 50 MG MG MG Hair Skin Hair Skin No Hair Skin and Nails and Nails and Nails Formula Formula Formula Soma 250 MG Soma 250 MG No 2{table QD Soma 250 ts_as_n MG eeded} Vitamin D Vitamin D No Vitamin D Vitamin B Vitamin B No Vitamin B Complex Complex Complex Vitamin C Vitamin C No Vitamin C Biotin Biotin No Biotin Valtrex 1 Valtrex 1 No QD Valtrex 1 GM GM GM Myrbetriq Myrbetriq No 1{table QD Myrbetriq 25 MG 25 MG t} 25 MG Diclofenac Diclofenac No TID Diclofenac Sodium 50 Sodium 50 Sodium 50 MG MG MG Hair Skin Hair Skin No Hair Skin and Nails and Nails and Nails Formula Formula Formula Soma 250 MG Soma 250 MG No 2{table QD Soma 250 ts_as_n MG eeded} Vitamin D Vitamin D No Vitamin D Vitamin B Vitamin B No Vitamin B Complex Complex Complex Vitamin C Vitamin C No Vitamin C Biotin Biotin No Biotin Valtrex 1 Valtrex 1 No QD Valtrex 1 GM GM GM Vitamin D Vitamin D No Vitamin D Myrbetriq Myrbetriq No 1{table QD Myrbetriq 25 MG 25 MG t} 25 MG Vitamin B Vitamin B No Vitamin B Complex Complex Complex Valtrex 1 Valtrex 1 No QD Valtrex 1 GM GM GM Diclofenac Diclofenac No TID Diclofenac Sodium 50 Sodium 50 Sodium 50 MG MG MG Biotin Biotin No Biotin Vitamin C Vitamin C No Vitamin C Hair Skin Hair Skin No Hair Skin and Nails and Nails and Nails Formula Formula Formula Soma 250 MG Soma 250 MG No 2{table QD Soma 250 ts_as_n MG eeded} Vitamin D Vitamin D No Vitamin D Myrbetriq Myrbetriq No 1{table QD Myrbetriq 25 MG 25 MG t} 25 MG Vitamin B Vitamin B No Vitamin B Complex Complex Complex Valtrex 1 Valtrex 1 No QD Valtrex 1 GM GM GM Diclofenac Diclofenac No TID Diclofenac Sodium 50 Sodium 50 Sodium 50 MG MG MG Biotin Biotin No Biotin Vitamin C Vitamin C No Vitamin C Hair Skin Hair Skin No Hair Skin and Nails and Nails and Nails Formula Formula Formula Soma 250 MG Soma 250 MG No 2{table QD Soma 250 ts_as_n MG eeded} Synthroid Synthroid No QD Synthroid 50 MCG 50 MCG 50 MCG Valtrex Valtrex No Valtrex Soma Soma No Soma Valtrex 1 Valtrex 1 No 1{table QD Valtrex 1 GM GM t} GM Diclofenac Diclofenac No 1{table TID Diclofenac Sodium 50 Sodium 50 t_with_ Sodium 50 MG MG food_or MG _milk} Synthroid Synthroid No QD Synthroid 50 MCG 50 MCG 50 MCG Valtrex Valtrex No Valtrex Soma Soma No Soma Valtrex 1 Valtrex 1 No 1{table QD Valtrex 1 GM GM t} GM Diclofenac Diclofenac No 1{table TID Diclofenac Sodium 50 Sodium 50 t_with_ Sodium 50 MG MG food_or MG _milk} Synthroid Synthroid No QD Synthroid 50 MCG 50 MCG 50 MCG Valtrex Valtrex No Valtrex Soma Soma No Soma Valtrex 1 Valtrex 1 No 1{table QD Valtrex 1 GM GM t} GM Diclofenac Diclofenac No 1{table TID Diclofenac Sodium 50 Sodium 50 t_with_ Sodium 50 MG MG food_or MG _milk} Vitamin B Vitamin B No Vitamin B Complex Complex Complex Soma 250 MG Soma 250 MG No 2{table QD Soma 250 ts_as_n MG eeded} Hair Skin Hair Skin No Hair Skin and Nails and Nails and Nails Formula Formula Formula Biotin Biotin No Biotin Valtrex 1 Valtrex 1 No QD Valtrex 1 GM GM GM Vitamin C Vitamin C No Vitamin C Myrbetriq Myrbetriq No 1{table QD Myrbetriq 25 MG 25 MG t} 25 MG Vitamin D Vitamin D No Vitamin D Diclofenac Diclofenac No TID Diclofenac Sodium 50 Sodium 50 Sodium 50 MG MG MG Vitamin B Vitamin B No Vitamin B Complex Complex Complex Soma 250 MG Soma 250 MG No 2{table QD Soma 250 ts_as_n MG eeded} Hair Skin Hair Skin No Hair Skin and Nails and Nails and Nails Formula Formula Formula Biotin Biotin No Biotin Valtrex 1 Valtrex 1 No QD Valtrex 1 GM GM GM Vitamin C Vitamin C No Vitamin C Myrbetriq Myrbetriq No 1{table QD Myrbetriq 25 MG 25 MG t} 25 MG Vitamin D Vitamin D No Vitamin D Diclofenac Diclofenac No TID Diclofenac Sodium 50 Sodium 50 Sodium 50 MG MG MG Biotin Biotin No Biotin Vitamin C Vitamin C No Vitamin C Vital Signs Vital Name Observation Time Observation Value Comments Source height 2020-11-23 16:20:00 64 [in_i] [facility] weight 2020-11-23 16:20:00 159 [lb_av] [facility] temperature 2020-11-23 16:20:00 97.2 [degF] [facility] bmi 2020-11-23 16:20:00 27.29 kg/m2 [facility] oximetry 2020-11-23 16:20:00 97 % [facility] respiratory rate 2020-11-23 16:20:00 16 /min Comm on [facility] blood pressure 2020-11-23 16:20:00 125 mm[Hg] Common [facility] - systolic [facility] blood pressure 2020-11-23 16:20:00 77 mm[Hg] [facility] - diastolic [facility] height 2020-05-10 15:20:00 64 [in_i] [facility] weight 2020-05-10 15:20:00 165 [lb_av] [facility] temperature 2020-05-10 15:20:00 98.1 [degF] [facility] bmi 2020-05-10 15:20:00 28.32 kg/m2 [facility] oximetry 2020-05-10 15:20:00 97 % [facility] respiratory rate 2020-05-10 15:20:00 18 /min Comm on [facility] blood pressure 2020-05-10 15:20:00 120 mm[Hg] Common [facility] - systolic [facility] blood pressure 2020-05-10 15:20:00 76 mm[Hg] Common [facility] - diastolic [facility] height 2019-12-20 11:00:00 64 [in_i] Common [facility] weight 2019-12-20 11:00:00 168.8 [lb_av] Common [facility] temperature 2019-12-20 11:00:00 99.4 [degF] Common S [facility] bmi 2019-12-20 11:00:00 28.97 kg/m2 [facility] oximetry 2019-12-20 11:00:00 97 % [facility] respiratory rate 2019-12-20 11:00:00 18 /min Comm on [facility] blood pressure 2019-12-20 11:00:00 136 mm[Hg] Common [facility] - systolic [facility] blood pressure 2019-12-20 11:00:00 79 mm[Hg] Common [facility] - diastolic [facility] Procedures This patient has no known procedures. Encounters Start End Encounter Admission Attending Care Care Encounter Source Date/Time Date/Time Type Type Clinicians Facility Department ID 2021-03-14 Outpatient Adilene, STLMLC STLMLC [id number] Common 13:57:55 Yumiko [id number] [facility] 2021-03-14 Outpatient STLMLC STLMLC [id number] Common 12:26:35 [id number] [facility] 2021-03-14 Outpatient STLMLC STLMLC [id number] Common 12:23:50 [id number] [facility] 2021-03-14 Outpatient Blade Adames STLMLC STLMLC [id number] Common 11:58:47 [facility] 2021-03-14 Outpatient Millender, STLMLC STLMLC [id number] Common 11:58:14 Dena [facility] 2021-03-14 Outpatient Millender, STLMLC STLMLC [id number] Common 11:29:22 Dena [id number] [facility] 2021-03-14 Outpatient Lisa, STRENNY STLMLC [id number] Common 11:04:32 Dena [id number] [facility] 2021-03-14 Outpatient Lisa, STLMLC STLMLC [id number] Common 11:04:08 Dena [id number] [facility] 2021-10-02 2021-10-02 Outpatient [facility] [id number] Univers 15:30:00 15:30:00 VIKKI ity of [facility] 2021-03-20 2021-03-20 Refill [facility] [id number] Univers 00:00:00 00:00:00 Vikki NOLAN [id number] ity of [id number] [phone] [address] 2021-02-19 2021-02-19 Patient Doctor SHELLIE [id number] Univers 00:00:00 00:00:00 Secure Msg Unassigned, RIZWANA [id number] [facility] [id number] [place] [phone] [address] 2020-12-12 2020-12-12 (WEB) STLC STLMLC [id number] Co mmon 00:00:00 00:00:00 [facility] 2020-11-27 2020-11-27 (TEL) STLC STLMLC [id number] Co mmon 00:00:00 00:00:00 [facility] 2020-11-27 2020-11-27 (TEL) STLMLC STLMLC [id number] Co mmon 00:00:00 00:00:00 [facility] 2020-11-23 2020-11-23 [facility] [id number] Univers 10:55:12 23:59:00 Encounter Vikki Nolan [id number] [id number] [phone] [address] 2020-11-23 2020-11-23 Outpatient R AD, [facility] [id number] Univers 00:00:00 00:00:00 VIKKI davidson [facility] 2020-11-23 2020-11-23 OFFICE [facility] [id number] Co mmon 00:00:00 00:00:00 VISIT Spirit ESTAB PT - CHI LEVEL 4 [facility] 2020-10-18 2020-10-18 [facility] [id number] Univers 00:00:00 00:00:00 Secure Msg Vikki NOLAN [id number] ity of [id number] [phone] Pr dical NAL [address] [place] [address] 2020-10-18 2020-10-18 [facility] [id number] Univers 00:00:00 00:00:00 Vikki Nolan [id number] [id number] [phone] Pr dical nal [address] [place] [address] 2020-10-04 2020-10-04 Outpatient R AD, [facility] [id number] Univers 00:00:00 00:00:00 VIKKI davidson [facility] 2020-09-28 2020-09-28 Office Ad, [facility] [id number] Univers 15:10:07 16:20:54 Visit Vikki Nolan [id number] [place]y [id number] Profess[place] [phone] Pr dical nal [address] [place] [address] 2020-09-28 2020-09-28 Outpatient R AD, [facility] [id number] Univers 15:30:00 15:30:00 VIKKI davidson [facility] 2020-09-25 2020-09-25 [facility] [id number] Univers 00:00:00 00:00:00 Secure Msg Vikki L [place] [id number] ity of [id number] [phone] Pr dical NAL [address] [place] [address] 2020-09-12 2020-09-12 Outpatient R ADUM, [facility] [id number] Univers 13:00:00 13:00:00 VIKKI ity [facility] 2020-08-15 2020-08-15 (TEL) STLMLC STLMLC [id number] Co mmon 00:00:00 00:00:00 [facility] 2020-07-24 2020-07-24 [facility] [id number] [facility] 00:00:00 00:00:00 Secure Msg Vikki L [place] [id number] ity of [id number] [phone] Pr dical NAL [address] [place] [address] 2020-05-17 2020-05-17 (TEL) STLMLC STLMLC [id number] Co mmon 00:00:00 00:00:00 [facility] 2020-05-10 2020-05-10 OFFICE STLMLC STLMLC [id number] Co mmon 00:00:00 00:00:00 VISIT EST Spir it PT LEVEL 3 - [facility] 2020-03-13 2020-03-13 (WEB) STLMLC STLMLC [id number] Co mmon 00:00:00 00:00:00 [facility] 2020-03-10 2020-03-10 Outpatient R AD, [facility] [id number] Univers 11:00:00 11:00:00 VIKKI ity [facility] 2020-02-03 2020-02-03 Patient Adum, [facility] [id number] Univers 00:00:00 00:00:00 Secure Msg Vikki L [place] [id number] ity of [id number] [phone] Pr dical NAL [address] [facility] 2020-01-31 2020-01-[address] [facility] [id number] Univers 00:00:00 00:00:00 Secure Msg Unassigned, MARTA [id number] ity of [place] [id number] Lulu zuñiga ARBEN [phone] Pr dical NAL 188 [facility] 2020-01-26 2020-01-26 Outpatient Juan GREENE, [facility] [id number] Univers 15:00:00 15:00:00 VIKKI davidson of [facility] 2019-12-20 2019-12-20 OFFICE STLMLC STLMLC [id number] Co mmon 00:00:00 00:00:00 VISIT EST Spir it PT LEVEL 3 - CHI [facility] 2019-12-09 2019-12-09 Outpatient STLMLC STLMLC [id number] Common 00:00:00 00:00:00 [facility] 2019-12-09 2019-12-09 OFFICE STLMLC STLMLC [id number] Co mmon 00:00:00 00:00:00 VISIT [facility] ESTAB PT - CHI LEVEL 2 [facility] 2019-12-01 2019-12-01 Outpatient STLMLC STLMLC [id number] Common 00:00:00 00:00:00 [facility] 2019-09-26 2019-09-26 [id number] Common 14:32:00 14:32:00 [place] [address] [facility] 2019-09-22 2019-09-22 [facility] [id number] Common 17:20:00 17:20:00 t [facility] [address] [facility] 2019-08-18 2019-08-18 [facility] [id number] Common 13:00:00 13:00:00 t [facility] [address] [facility] 2019-03-22 2019-03-22 [facility] [id number] Common 22:03:00 22:03:00 t [facility] [address] [facility] 2019-03-18 2019-03-18 [facility] [id number] Common 15:00:00 15:00:00 t [facility] [address] [facility] 2018-07-29 2018-07-29 [facility] [id number] Common 11:30:00 11:30:00 t [facility] [address] [facility] 2018-03-26 2018-03-26 [facility] [id number] Common 14:00:00 14:00:00 t [facility] 2017-07-09 2017-07-09 [facility] [id number] Common 19:22:00 19:22:00 t [facility] [address] [facility] 2017-07-09 2017-07-09 [facility] [id number] Common 11:30:00 11:30:00 t [facility] [address] [facility] Results This patient has no known results.
--- NOTE | 2022-12-08 17:35 | RAD REPORT ---
EXAM DESCRIPTION: RAD - Chest Single View - 12/08/2022 5:26 pm CLINICAL HISTORY: CHEST PAIN COMPARISON: No comparisons FINDINGS: Lines: None. Lungs: No evidence of edema or pneumonia. Pleural: No significant pleural effusions or pneumothorax. Cardiac: The heart size is within normal limits. Mediastinum: Within normal limits. Bones: No acute fractures. Other: None IMPRESSION: No acute cardiopulmonary disease.
[2022-12-08] MEDS ORDERED: PROMETHAZINE 25 MG TABLET ONE (17:39)
[2022-12-08 19:19] LABS: Absolute Lymphocytes (CBC) 1.1 K/uL (0.7-4.9); Hematocrit 42.4 % (36.0-45.0); Lymphocytes % 16.1 % (15.3-44.8); MCV 94.1 fL (80-100); MPV 7.2 fL (7.6-11.3); Platelets 318 thou/uL (152-406); RBC Red Blood Cell Count 4.51 M/uL (3.86-4.86)
[2022-12-08 19:22] LABS: Protime INR 1.05
[2022-12-08 19:58] LABS: Albumin 3.4 g/dL (3.4-5.0); Bilirubin Direct 0.1 mg/dL (0-0.2); Bilirubin Indirect, Calculated 0.4 mg/dL (0.2-0.8); Bilirubin Total 0.5 mg/dL (0.2-1.0); Magnesium 2.3 mg/dL (1.6-2.4); Potassium 3.8 mEq/L (3.5-5.1); Protein, Total 7.3 g/dL (6.4-8.2); Troponin High Sensitivity 10.7 pg/mL (<58.9)
[2022-12-08 20:03] LABS: Calcium Oxalate Crystals- Ur Few /HPF (None Seen); Specific Gravity > 1.030 (1.005-1.030); Urine Bacteria None Seen /HPF (<20); Urine Bilirubin NEGATIVE (Negative); Urine Blood Trace (Negative); Urine Clarity Extremely Turbid (Clear); Urine Color Yellow (Yellow); Urine Glucose NEGATIVE (Negative); Urine Mucus 3+ /HPF (None Seen); Urine Protein 1+ (Negative); Urine RBC <5 /HPF (None Seen); Urine Urobilinogen 1+ (Normal); Urine pH 5.5 (5.0-7.0)
--- NOTE | 2022-12-08 21:36 | RAD REPORT ---
EXAM DESCRIPTION: CT - Head Brain Wo Cont - 12/08/2022 9:29 pm CLINICAL HISTORY: HEADACHE COMPARISON: No comparisons TECHNIQUE: All CT scans are performed using dose optimization technique as appropriate and may inclu de automated exposure control or mA/KV adjustment according to patient size. FINDINGS: No intracranial hemorrhage, hydrocephalus or extra-axial fluid collection.No areas of brai n edema or evidence of midline shift. The paranasal sinuses and mastoids are clear. The calvarium is intact. IMPRESSION: No acute intracranial abnormality.
[2022-12-08] MEDS ORDERED: FENTANYL CITR 100 MCG/2 ML ONE (21:37)
--- NOTE | 2022-12-08 21:43 | RAD REPORT ---
EXAM DESCRIPTION: CTAngio Aorta For Dissection - 12/08/2022 9:30 pm CLINICAL HISTORY: PAIN COMPARISON: Head Brain Wo Cont dated 12/08/2022 TECHNIQUE: CTA of the chest, abdomen, and pelvis was performed. MIPs of the aorta were created All CT scans are performed using dose optimization technique as appropriate and may include automated exposure control or mA/KV adjustment according to patient size. FINDINGS: Thorax: Chest Wall: No abnormal mass Lungs: No acute abnormality. Pleura: No effusions or pneumothorax. Yanely/Mediastinum: No lymphadenopathy. Aorta/Pulmonary Arteries: No aortic aneurysm or dissection. No pulmonary embolus identified. Mural th rombus/noncalcified plaque that is prominent and is located along the descending thoracic aorta. Heart: Normal size. Abdomen/Pelvis: Liver: No acute abnormality or suspicious lesions. Biliary: No biliary ductal dilatation. Stomach: Wall thickening at the gastric antrum. Duodenum: Pronounced circumferential wall thickening at the proximal duodenum Pancreas: No significant abnormality. Spleen: No significant abnormality. Adrenal: No suspicious lesions. Kidney/ureter: No hydronephrosis. No renal calculi. Retroperitoneum: No retroperitoneal adenopathy. Vascular: No aneurysm. Bowel: Diverticulosis without diverticulitis.. Peritoneum: No ascites or free air. Bladder: Grossly unremarkable. Reproductive: No adnexal masses. Bones: No acute fracture. Other: n/a IMPRESSION: No aortic aneurysm, aortic dissection, or pulmonary embolus identified. Atherosclerosis noted including prominent mural thrombus and/or noncalcified plaque along the descending thoracic aor ta. Moderate to severe circumferential thickening at the gastric antrum and proximal duodenum concerning for the presence of underlying peptic ulcer disease. No perforation identified. Endoscopy could nacho r evaluate.
[2022-12-08] MEDS ORDERED: PANTOPRAZOLE 40 MG INJ ONE (22:12)
[2022-12-08] MEDS ORDERED: NA CHLORIDE 0.9% 250 ML ONE (22:12)
--- NOTE | 2022-12-08 22:51 | EDPHYS ---
Physician Documentation [facility] Name: Yoanna Salguero Age: 71 yrs Sex: Female : 1950 Arrival Date: 12/08/2022 Time: 16:31 Bed 13 Private MD: ED Physician Immanuel Encinas HPI: 12/08 17:22 This 71 yrs old Female presents to ER via Wheelchair with complaints of Back Pain, snw Chest Pain, Nausea/Vomiting. 17:22 The patient or guardian reports chest pain that is located primarily in the epigastric snw area. Onset: acutely, 2 day(s) ago, and became persistent. The pain radiates to back. Associated signs and symptoms: Pertinent positives: nausea, vomiting. Duration: The patient or guardian reports a single episode, that is still ongoing. Severity of pain: At its worst the pain was mild moderate. It is unknown whether or not the patient has had similar symptoms in the past. Historical: - Allergies: 17:08 Codeine; ll1 17:08 Sulfa (Sulfonamide Antibiotics); ll1 - PMHx: 17:08 urinary problems; ll1 - PSHx: 17:08 None; ll1 - Immunization history:: Adult Immunizations up to date. - Social history:: Smoking status: Patient denies any tobacco usage or history of. ROS: 17:20 Eyes: Negative for injury, pain, redness, and discharge, ENT: Negative for injury, snw pain, and discharge, Neck: Negative for injury, pain, and swelling, 17:20 Respiratory: Negative for shortness of breath, cough, wheezing, and pleuritic chest pain, 17:20 : Negative for injury, bleeding, discharge, and swelling, MS/Extremity: Negative for injury and deformity, Skin: Negative for injury, rash, and discoloration, Neuro: Negative for headache, weakness, numbness, tingling, and seizure, Psych: Negative for depression, anxiety, suicide ideation, homicidal ideation, and hallucinations, 17:20 Constitutional: Positive for body aches, malaise, poor PO intake, nausea, indigestion, weakness, 17:20 Cardiovascular: Positive for chest pain, back pain, 17:20 Abdomen/GI: Positive for nausea and vomiting, indigestion, 17:20 Back: Positive for radiated pain, of the left subscapular area, right subscapular area and thoracic area, Exam: 17:19 Constitutional: This is a well developed, well nourished patient who is awake, alert, snw and feeling very poorly, tearful, nauseated Head/Face: Normocephalic, atraumatic. Eyes: Pupils equal round and reactive to light, extra-ocular motions intact. Lids and lashes normal. Conjunctiva and sclera are non-icteric and not injected. Cornea within normal limits. Periorbital areas with no swelling, redness, or edema. ENT: Nares patent. No nasal discharge, no septal abnormalities noted. Tympanic membranes are normal and external auditory canals are clear. Oropharynx with no redness, swelling, or masses, exudates, or evidence of obstruction, uvula midline. Mucous membranes moist. Neck: Trachea midline, no thyromegaly or masses palpated, and no cervical lymphadenopathy. Supple, full range of motion without nuchal rigidity, or vertebral point tenderness. No Meningismus. Chest/axilla: Normal chest wall appearance and motion. Nontender with no deformity. No lesions are appreciated. Cardiovascular: Regular rate and rhythm with a normal S1 and S2. No gallops, murmurs, or rubs. Normal PMI, no JVD. No pulse deficits. Respiratory: Lungs have equal breath sounds bilaterally, clear to auscultation and percussion. No rales, rhonchi or wheezes noted. No increased work of breathing, no retractions or nasal flaring. Abdomen/GI: Soft, non-tender, with normal bowel sounds. No distension or tympany. No guarding or rebound. No evidence of tenderness throughout. Back: No spinal tenderness. No costovertebral tenderness. Full range of motion. Skin: Warm, dry with normal turgor. Normal color with no rashes, no lesions, and no evidence of cellulitis. MS/ Extremity: Pulses equal, no cyanosis. Neurovascular intact. Full, normal range of motion. Neuro: Awake and alert, GCS 15, oriented to person, place, time, and situation. Cranial nerves II-XII grossly intact. Motor strength 5/5 in all extremities. Sensory grossly intact. Cerebellar exam normal. Normal gait. Psych: Awake, alert, with orientation to person, place and time. Behavior, mood, and affect are within normal limits. Vital Signs: 17:07 BP 147 / 99; Pulse 81; Resp 18; Temp 98.1; Pulse Ox 100% ; Weight 63.5 kg; Height 5 ft. ll1 4 in. ; Pain 10/10; 19:20 BP 148 / 83; Pulse 66; Resp 17 S; Pulse Ox 99% on R/A; ha1 20:30 BP 152 / 105; snw 21:00 BP 165 / 88; Pulse 80; Resp 17 S; Pulse Ox 96% on R/A; ha1 22:00 BP 123 / 179; Pulse 69; Resp 16 S; Pulse Ox 94% on R/A; ha1 23:00 BP 140 / 82; Pulse 71; Resp 17 S; Pulse Ox 95% on R/A; ha1 23:42 BP 142 / 85; Pulse 76; Resp 17 S; Pulse Ox 96% on R/A; ha1 12/09 00:16 BP 127 / 80; Pulse 72; Resp 17 S; Pulse Ox 96% on R/A; ha1 12/08 17:07 Body Mass Index 24.03 (63.50 kg, 162.56 cm) ll1 12/08 17:07 Pain Scale: Adult ll1 MDM: 12/08 17:00 Response to treatment: There is no appreciated change of the patient's symptoms at this snw time, vomited x 3 in [facility]. ED course: Pt evaluated in triage, po phenergan given, no ED beds, pt to [facility]. . 17:12 Patient medically screened. snw 19:00 ED course: pt in ED 13. No change, continues with chest pain and headache. Medications snw ordered.. 20:20 ED course: nausea improved, headache and chest pain continue. snw 20:29 Counseling: I had a detailed discussion with the patient and/or guardian regarding the snw historical points, exam findings, and any diagnostic results supporting the discharge/admit diagnosis, the presence of at least one elevated blood pressure reading (>120/80) during this emergency department visit, lab results, radiology results. ED course: pt continues with chest pain across anterior chest through to back with "splitting headache". 22:34 Management of patient was discussed with the following: Dr. Rivas at [facility] for snw concerns for mural thrombus/noncalcified plaques in descending aorta complicated by the finding of moderate to severe circumferential thickening of gastric anthum and proximal duodenum/peptic ulcer. Wants consult with Vascular, Dr. Nevarez re: heparin drip prior to finalization of transfer.. 22:51 Differential diagnosis: abnormal EKG, acute myocardial infarction, gastroesophageal snw reflux disease (GERD), pancreatitis, peptic ulcer disease, thoracic aortic disection, unstable angina. The patient was not given aspirin in the Emergency Department. Data reviewed: vital signs, nurses notes, lab test result(s), EKG, radiologic studies, CT scan, plain films. ED course: Spoke with Dr. Blair, aortic surgery, re: consult for heparin drip. Dr. guallpa agrees to consult/treat pt when transferred to [facility]. 12/08 16:49 Order name: Basic Metabolic Panel; Complete Time: 20:03 snw 12/08 16:49 Order name: CBC with Diff; Complete Time: 19:23 snw 12/08 16:49 Order name: LFT's; Complete Time: 20:03 snw 12/08 16:49 Order name: Magnesium; Complete Time: 20:03 snw 12/08 16:49 Order name: NT PRO-BNP; Complete Time: 20:03 snw 12/08 16:49 Order name: PT-INR; Complete Time: 19:23 snw 12/08 16:49 Order name: Troponin HS; Complete Time: 20:03 snw 12/08 16:49 Order name: Lipase; Complete Time: 20:03 snw 12/08 17:22 Order name: Flu; Complete Time: 17:53 ll1 12/08 17:22 Order name: COVID-19 SARS RT PCR; Complete Time: 18:03 ll1 12/08 17:25 Order name: Urine W/Microscopic (UAM); Complete Time: 20:10 snw 12/08 16:49 Order name: XRAY Chest (1 view); Complete Time: 17:37 snw 12/08 20:29 Order name: CT Head Brain wo Cont; Complete Time: 21:41 snw 12/08 20:29 Order name: CT Aorta for Dissection; Complete Time: 21:46 snw 12/08 16:49 Order name: EKG; Complete Time: 16:50 snw 12/08 16:49 Order name: Cardiac monitoring; Complete Time: 19:13 snw 12/08 16:49 Order name: EKG - Nurse/Tech; Complete Time: 17:18 snw 12/08 16:49 Order name: IV Saline Lock; Complete Time: 19:13 snw 12/08 16:49 Order name: Labs collected and sent; Complete Time: 19:13 snw 12/08 16:49 Order name: O2 Per Protocol; Complete Time: 19:13 snw 12/08 16:49 Order name: O2 Sat Monitoring; Complete Time: 19:13 snw EC:20 Rate is 78 beats/min. Rhythm is regular. QRS [place] is Normal. [place] interval is normal. QRS snw interval is normal. T waves are Inverted in lead aVR. Clinical impression: NSR w/ Non-specific ST/T Changes. Administered Medications: 18:05 Drug: Promethazine PO 25 mg PO once Route: PO; 1 19:36 Follow up: Response: No adverse reaction 3 19:20 Drug: Ondansetron PO 4 mg PO once Route: PO; 3 20:00 Follow up: Response: No adverse reaction; Nausea is decreased [facility] 19:25 Drug: NS 0.9% IV 1000 ml IV at 125 ml/hr continuous Route: IV; Rate: 125 ml/hr; Site: [facility] right antecubital; 12/09 00:21 Follow up: Response: No adverse reaction; IV Status: Infusion continued [facility] 12/08 19:25 Drug: NS 0.9% IV 500 ml IV at bolus once Route: IV; Rate: bolus; Site: right [facility] antecubital; 12/09 00:21 Follow up: Response: No adverse reaction; IV Status: Completed infusion [facility] 12/08 19:35 Drug: Promethazine IVP 12.5 mg IVP once Route: IVP; Site: right antecubital; 3 20:00 Follow up: Response: No adverse reaction; Nausea is decreased 1 21:37 Drug: fentaNYL (PF) IVP 50 mcg IVP once Route: IVP; Site: right antecubital; [facility] 22:00 Follow up: Response: No adverse reaction; Pain is decreased; RASS: Alert and Calm (0) [facility] 22:10 Drug: Pantoprazole IV 8 mg/hr IV at 25 ml/hr continuous; (Standard dilution is 80 mg in 1 250 mL NS) Route: IV; Rate: 25 ml/hr; Site: right antecubital; 12/09 00:19 Follow up: Response: No adverse reaction; IV Status: Infusion continued ha1 12/08 23:17 Drug: Acetaminophen PO 1000 mg PO once Route: PO; ha1 12/09 00:19 Follow up: Response: No adverse reaction; Pain is decreased ha1 Disposition: 12/08 23:13 Critical Care:. snw 12/09 10:06 Co-signature as Attending Physician, Immanuel Encinas MD I reviewed the patient's care rn provided by the Advanced Practice Provider and agree with the diagnosis and treatment plan. Disposition Summary: 12/08/22 22:51 Transfer Ordered Notes: Transfer Location: [facility] snw Reason: Higher level of care snw Condition: Stable snw Problem: new snw Symptoms: have improved snw Accepting Physician: Dr. 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 Total time: 35 minutes Signatures: Dispatcher [employer] EDMS Michelle Silveira FNP-C PRODUCTION SUPERINTENDENT-Csnw Immanuel Encinas MD MD rn Lewis, Lynsay, RN RN 1 Kanchan Sifuentes RN RN 3 Pao Bassett RN RN ha1 Corrections: (The following items were deleted from the chart) 21:40 19:00 ED course: nausea improved, continued pain to chest and headache.. snw snw 12/09 00:23 12/08 22:51 Dr. Rivas snw ha1
--- NOTE | 2022-12-08 22:51 | ER ---
Nurse's Notes [facility] Name: Yoanna Salguero Age: 71 yrs Sex: Female : 1950 Arrival Date: 12/08/2022 Time: 16:31 Bed 13 Private MD: Diagnosis: Atherosclerotic heart disease of [place] coronary artery with angina pectoris-mural thrombus of descending aorta;Acute peptic ulcer, site unspecified, without hemorrhage or perforation Presentation: 12/08 17:07 Chief complaint: Patient states: N/V, chest, upper back pain, ROONEY for 2 days. ll1 Coronavirus screen: Client denies travel out of the [place] in the last 14 days. At this time, the client does not indicate any symptoms associated with coronavirus-19. Ebola Screen: Patient denies travel to an Ebola-affected area in the 21 days before illness onset. Initial Sepsis Screen: Does the patient meet any 2 criteria? No. Patient's initial sepsis screen is negative. Does the patient have a suspected source of infection? Yes: Acute abdominal pain. Risk Assessment: Do you want to hurt yourself or someone else? Patient reports no desire to harm self or others. Onset of symptoms was December 07, 2022. 17:07 Method Of Arrival: Wheelchair ll1 17:07 Acuity: RAE 3 ll1 Historical: - Allergies: 17:08 Codeine; ll1 17:08 Sulfa (Sulfonamide Antibiotics); ll1 - PMHx: 17:08 urinary problems; ll1 - PSHx: 17:08 None; ll1 - Immunization history:: Adult Immunizations up to date. - Social history:: Smoking status: Patient denies any tobacco usage or history of. Screenin:15 [facility] ED Fall Risk Assessment (Adult) History of falling in the last 3 months, eh3 including since admission No falls in past 3 months (0 pts) Confusion or Disorientation No (0 pts) Intoxicated or Sedated No (0 pts) Impaired Gait No (0 pts) Mobility Assist Device Used No (0 pt) Altered Elimination Yes (1 pt) Score/Fall Risk Level 0 - 2 = Low Risk. 19:39 Abuse screen: Denies threats or abuse. Denies injuries from another. Nutritional ha1 screening: No deficits noted. Tuberculosis screening: No symptoms or risk factors identified. Assessment: 18:15 General: Appears in no apparent distress. uncomfortable, Behavior is cooperative, eh3 anxious. Pain: Complains of pain in back and abdomen. Neuro: Level of Consciousness is awake, alert, obeys commands, Oriented to person, place, time, situation. Cardiovascular: Capillary refill < 3 seconds Patient's skin is warm and dry. Rhythm is sinus rhythm. Respiratory: Airway is patent Respiratory effort is even, unlabored, Respiratory pattern is regular, symmetrical. GI: Abdomen is round non-distended, Reports upper abdominal pain, intolerance of fluids, intolerance of food, nausea, vomiting. Derm: Skin is pink, warm \T\ dry. Musculoskeletal: Circulation, motion, and sensation intact. Range of motion: intact in all extremities. 19:20 General: Appears uncomfortable, Behavior is cooperative. Pain: Complains of pain in mid ha1 epigastric and abdomen Pain does not radiate. Pain currently is 8 out of 10 on a pain scale. Quality of pain is described as burning, pressure. Neuro: Level of Consciousness is awake, alert, obeys commands, Oriented to person, place, time, situation. Cardiovascular: Reports chest pain, Heart tones S1 S2 present Capillary refill < 3 seconds Patient's skin is warm and dry. Respiratory: Airway is patent Respiratory effort is even, unlabored, Respiratory pattern is regular, symmetrical. GI: Abdomen is flat, non-distended, Bowel sounds present X 4 quads. Reports upper abdominal pain, nausea, vomiting. Derm: Skin is pink, warm \T\ dry. Musculoskeletal: Circulation, motion, and sensation intact. 20:20 Reassessment: Patient and/or family updated on plan of care and expected duration. Pain ha1 level reassessed. Patient is alert, oriented x 3, equal unlabored respirations, skin warm/dry/pink. 21:00 Reassessment: Patient and/or family updated on plan of care and expected duration. Pain ha1 level reassessed. Patient is alert, oriented x 3, equal unlabored respirations, skin warm/dry/pink. pain 9/10 notified care provider. 22:00 Reassessment: Patient and/or family updated on plan of care and expected duration. Pain ha1 level reassessed. Patient is alert, oriented x 3, equal unlabored respirations, skin warm/dry/pink. 23:00 Reassessment: Patient and/or family updated on plan of care and expected duration. Pain ha1 level reassessed. Patient is alert, oriented x 3, equal unlabored respirations, skin warm/dry/pink. 12/09 00:22 Reassessment: Patient and/or family updated on plan of care and expected duration. Pain ha1 level reassessed. Patient is alert, oriented x 3, equal unlabored respirations, skin warm/dry/pink. Patient states feeling better. Patient states symptoms have improved. Vital Signs: 12/08 17:07 BP 147 / 99; Pulse 81; Resp 18; Temp 98.1; Pulse Ox 100% ; Weight 63.5 kg; Height 5 ft. ll1 4 in. ; Pain 10/10; 19:20 BP 148 / 83; Pulse 66; Resp 17 S; Pulse Ox 99% on R/A; ha1 20:30 BP 152 / 105; snw 21:00 BP 165 / 88; Pulse 80; Resp 17 S; Pulse Ox 96% on R/A; ha1 22:00 BP 123 / 179; Pulse 69; Resp 16 S; Pulse Ox 94% on R/A; ha1 23:00 BP 140 / 82; Pulse 71; Resp 17 S; Pulse Ox 95% on R/A; ha1 23:42 BP 142 / 85; Pulse 76; Resp 17 S; Pulse Ox 96% on R/A; ha1 12/09 00:16 BP 127 / 80; Pulse 72; Resp 17 S; Pulse Ox 96% on R/A; ha1 12/08 17:07 Body Mass Index 24.03 (63.50 kg, 162.56 cm) ll1 12/08 17:07 Pain Scale: Adult ll1 ED Course: 12/08 16:34 Patient arrived in ED. ts1 16:48 [facility] snw 16:49 Immanuel Encinas MD is Attending Physician. snw 17:08 Triage completed. ll1 17:09 Arm band placed on. ll1 17:22 Flu Sent. hb 17:22 COVID-19 SARS RT PCR Sent. hb 17:28 XRAY Chest (1 view) In Process Unspecified. EDMS 18:15 Provided Education on: Use of call lopez. Client placed on continuous cardiac and pulse eh3 oximetry monitoring. NIBP monitoring applied. Door closed. Noise minimized. Lights dimmed. Warm blanket given. 18:15 Inserted saline lock: 22 gauge in right antecubital area, using aseptic technique. eh3 Blood collected. 18:20 Kanchan Sifuentes, RN is Primary Nurse. 3 19:20 Patient has correct armband on for positive identification. Bed in low position. Call ha1 light in reach. Side rails up X 1. 19:42 Urine W/Microscopic (UAM) Sent. eh3 21:31 CT Head Brain wo Cont In Process Unspecified. EDMS 21:31 CT Aorta for Dissection In Process Unspecified. EDMS 22:34 2155 called [facility] For transfer talked to Renee in transfer center. sp 23:[address] Maria C Neal accepted pt to [facility]. sp 23:13 2256 MATHEW Kimball admin approval bed #[id number] report number [phone] faxed sp demographics to [phone]. 23:46 Inserted saline lock: 20 gauge in left forearm, using aseptic technique. 4 23:59 called [facility] - talked to [facility] and they will transfer pt to [facility]. sp 12/09 00:22 No provider procedures requiring assistance completed. Patient transferred, IV remains ha1 in place. Administered Medications: 12/08 18:05 Drug: Promethazine PO 25 mg PO once Route: PO; [facility] 19:36 Follow up: Response: No adverse reaction 3 19:20 Drug: Ondansetron PO 4 mg PO once Route: PO; 3 20:00 Follow up: Response: No adverse reaction; Nausea is decreased [facility] 19:25 Drug: NS 0.9% IV 1000 ml IV at 125 ml/hr continuous Route: IV; Rate: 125 ml/hr; Site: [facility] right antecubital; 12/09 00:21 Follow up: Response: No adverse reaction; IV Status: Infusion continued [facility] 12/08 19:25 Drug: NS 0.9% IV 500 ml IV at bolus once Route: IV; Rate: bolus; Site: right 3 antecubital; 12/09 00:21 Follow up: Response: No adverse reaction; IV Status: Completed infusion [facility] 12/08 19:35 Drug: Promethazine IVP 12.5 mg IVP once Route: IVP; Site: right antecubital; 3 20:00 Follow up: Response: No adverse reaction; Nausea is decreased ha1 21:37 Drug: fentaNYL (PF) IVP 50 mcg IVP once Route: IVP; Site: right antecubital; ha1 22:00 Follow up: Response: No adverse reaction; Pain is decreased; RASS: Alert and Calm (0) ha1 22:10 Drug: Pantoprazole IV 8 mg/hr IV at 25 ml/hr continuous; (Standard dilution is 80 mg in ha1 250 mL NS) Route: IV; Rate: 25 ml/hr; Site: right antecubital; 12/09 00:19 Follow up: Response: No adverse reaction; IV Status: Infusion continued ha1 12/08 23:17 Drug: Acetaminophen PO 1000 mg PO once Route: PO; ha1 12/09 00:19 Follow up: Response: No adverse reaction; Pain is decreased ha1 Medication: 12/08 19:39 VIS not applicable for this client. ha1 Outcome: 22:51 ER care complete, transfer ordered by MD. badillo 12/09 00:22 Transferred by ground EMS to [facility] Condition: stable Instructed on the need for transfer, Demonstrated understanding of instructions, 00:23 Patient left the ED. [facility] Signatures: Dispatcher [employer] EDMS Michelle Silveira FNP-C [employer]-Corry Brizuela Heather, RN RN hb Lewis, Lynsay, RN RN 1 Kanchan Sifuentes RN RN 3 Pao Bassett RN RN 1 Lisa Beverly PAS PAS 1 Rhonda aRdford 4 Corrections: (The following items were deleted from the chart) 12/08 21:43 21:20 Reassessment: Patient and/or family updated on plan of care and expected ha1 duration. Pain level reassessed. Patient is alert, oriented x 3, equal unlabored respirations, skin warm/dry/pink. pain 10/27 notified care provider ha1
[2022-12-08] MEDS ORDERED: ACETAMINOPHEN 500 MG TAB ONE (23:26)
--- NOTE | 2022-12-09 18:06 | EKG ---
Test Date: 2022-12-08 Test Time: 17:16:20 Instruction Dean: ELYSIA MEASUREMENT RESULTS: Intervals: Rate: 78 SD: QRSD: 82 QT: 350 QTc: 399 [place]: P: SD: QRS: -4 T: 49 INTERPRETIVE STATEMENTS: Normal sinus rhythm Junctional ST depression, probably normal Borderline ECG No previous ECG available for comparison Electronically Signed On 12-09-22 18:05:15 CDT by Riley Lind
== END 2022-12-09 00:23 | disposition short-term general hospital (02) ==
LOC: ER 16:31
DX: I25.119 Atherosclerotic heart disease of native coronary artery with unspecified angina pectoris (principal); I74.19 Embolism and thrombosis of other parts of aorta; K27.3 Acute peptic ulcer, site unspecified, without hemorrhage or perforation; Z20.822 Contact with and (suspected) exposure to COVID-19; Z88.2 Allergy status to sulfonamides; Z88.5 Allergy status to narcotic agent
CPT/HCPCS: 96365; 96361; 93005; 85025; 81001; 80048; 36415; 83735; 85610; 80076; 84484; 83690; 83880; 87635; 87804 ×2; 70450; 71275; 74175; 71045; 96375; 99285; 96366; Q9967; Q0169; C9113; J3010; J7050